=== PATIENT | male | born 1935 | race Caucasian/White ===

== ENCOUNTER 2016-12-21 23:25 | Observation (INO) | payer MEDICARE, BC ==
[2016-12-21] MEDS ORDERED: Sodium Chloride 0.9% 10 ML Syringe FLUSH PRN (23:43)
--- NOTE | 2016-12-21 23:52 | EDM.PDOC ---
ED HISTORY OF PRESENT ILLNESS - General Chief Complaint: Chest Pain Stated Complaint: CHEST PAIN Time Seen by Provider: 12/21/16 23:26 Source: Reports: Patient History Limitations: Reports: Altered mental status, Other (age) - History of Present Illness INITIAL COMMENTS - FREE TEXT/NARRATIVE: 81 year y.o.w.m with H/o afib, HTN, CVA, CAD, came to the ed due to an episode of C? 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 pt is in his usual state of health. Symptom Onset Date: 12/21/16 Symptom Onset Time: 16:00 Timing/Duration: Reports: Hour(s): Severity: mild Location, General: Reports: chest Improves with: Reports: Medication Worsens with: Reports: None Treatment(s) PAPER GUILLOTINE OPERATOR: Reports: Aspirin - Related Data Allergies/ADRs: Allergies Allergy/AdvReac Type Severity Reaction Status Date / Time Penicillins Allergy Rash Verified 12/21/16 23:55 Home Meds: Home Meds Ascorbic Acid [C-1000] 1,000 mg PO DAILY 12/21/16 [History] Aspirin [Halfprin] 81 mg PO DAILY 12/21/16 [History] Hydrochlorothiazide 50 mg PO DAILY 12/21/16 [History] Lisinopril 40 mg PO DAILY 12/21/16 [History] [place]-3 Fatty Acids [Maxepa] 1,000 mg PO BID 12/21/16 [History] Potassium Chloride 20 meq PO DAILY 12/21/16 [History] Pravastatin Sodium 80 mg PO DAILY 12/21/16 [History] Warfarin [Coumadin] 1.25 mg PO MOWEFR 12/21/16 [History] Warfarin [Coumadin] 2.5 mg PO SUTUTHSA 12/21/16 [History] amLODIPine Besylate [Amlodipine Besylate] 5 mg PO DAILY 12/21/16 [History] cloNIDine HCl [Catapres] 0.2 mg PO BID 12/21/16 [History] ED ROS GENERAL - Review of Systems Review Of Systems: See Below Constitutional: Reports: no symptoms HEENT: Reports: No symptoms Respiratory: Reports: no symptoms Cardiovascular: Reports: No symptoms Endocrine: Reports: no symptoms GI/Abdominal: Reports: No symptoms : Reports: no symptoms Musculoskeletal: Reports: no symptoms Skin: Reports: no symptoms Neurological: Reports: other (h/o cva) Psychiatric: Reports: No symptoms Hematologic/Lymphatic: Reports: no symptoms Immunologic: Reports: no symptoms ED EXAM, GENERAL - Physical Exam Exam: See Below Exam Limited By: Altered mental status General Appearance: alert, WD/WN, mild distress, obese Ears: normal external exam, normal canal, hearing grossly normal, normal TMs Ear Exam: bilateral ear: auricle normal, canal normal, TM normal Nose: normal inspection, normal mucosa, no blood Throat/Mouth: Normal inspection, Normal lips, Normal teeth, Normal gums, Normal oropharynx, Normal voice, No airway compromise Head: atraumatic, normocephalic Neck: normal inspection, supple, non-tender, full range of motion Respiratory/Chest: no respiratory distress, lungs clear, normal breath sounds, no accessory muscle use, chest non-tender Cardiovascular: normal peripheral pulses, regular rate, rhythm, no edema, no gallop, no JVD, no murmur, no rub GI/Abdominal: normal bowel sounds, soft, non tender, no organomegaly, no distention, no abnormal bruit, no mass (Male) Exam: Deferred Rectal (Males) Exam: Deferred Back Exam: normal inspection, full range of motion, NT Extremities: normal inspection, normal range of motion, non-tender, no pedal edema, normal capillary refill, pedal edema (chronic r leg) Neurological: alert, oriented, CN II-XII intact, normal cognition, normal gait Psychiatric: normal affect, normal mood Skin Exam: Warm, Dry, Intact, Normal color, No rash Lymphatic: no adenopathy EKG INTERPRETATION EKG Date: 12/21/16 Time: 23:35 Rhythm: a-fib Rate (beats/min): 73 [place]: normal P-wave: absent QRS: normal ST-T: normal QT: normal Comparison: NA - no prior EKG Course - Vital Signs Text/Narrative:: 81 year y.o.w.m with H/o afib, HTN, CVA, CAD, came to the ed due to an episode of C? 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 pt is in his usual state of health. PE: A fib with NVR, D Dimer Nl Imaging: CXR NAD Labs: potassium 3.1 INR 2.54 Tx: potassium Plan: Admit to [facility]ones for OBS Last Recorded V/S: Last Vital Signs Temp 36.7 C 12/21/16 23:30 Pulse 75 12/21/16 23:30 Resp 13 12/21/16 23:30 BP 179/91 H 12/22/16 00:06 Pulse Ox 98 12/21/16 23:30 - Orders/Labs/Meds Orders: Active Orders 24 hr Category Date Time Status Patient Status [ADT] Routine ADT 12/22/16 00:43 Active Anticoag Warfarin Education *Q [RC] DAILY Care 12/22/16 00:42 Active Bedrest Bedside Commode [RC] ASDIRECTED Care 12/22/16 00:42 Active EKG Documentation Completion [RC] ASDIRECTED Care 12/21/16 23:44 Active Oxygen Therapy [RC] PRN Care 12/22/16 00:43 Active VTE/DVT Education [RC] Per Unit Routine Care 12/22/16 00:43 Active Vital Signs [RC] Q4H Care 12/22/16 00:43 Active 2 Gram Sodium Diet [DIET] Diet 12/22/16 Breakfast Ordered Chest 1V Frontal [CR] Stat Exams 12/21/16 23:43 Taken TROPONIN I [CHEM] Stat Lab 12/22/16 00:40 Ordered Sodium Chloride 0.9% [Saline Flush] Med 12/21/16 23:43 Active 10 ml FLUSH ASDIRECTED PRN Saline Lock Insert [OM.PC] Routine Oth 12/21/16 23:43 Ordered Resuscitation Status Routine Resus Stat 12/22/16 00:42 Ordered EKG 12 Lead [EK] Routine Ther 12/21/16 23:43 Ordered Medication Orders Sodium Chloride (Saline Flush) 10 ml FLUSH ASDIRECTED PRN PRN Reason: Keep Vein Open Last Admin: 12/22/16 00:02 Dose: 10 ml Labs: Laboratory Tests 12/22/16 12/22/16 12/22/16 Range/Units 00:01 00:01 00:01 WBC 9.4 (4.5-12.0) X10-3/uL RBC 4.71 (4.30-5.75) x10(6)uL Hgb 14.8 (11.5-15.5) g/dL Hct 44.2 (30.0-51.3) % MCV 93.7 (80-96) fL MCH 31.4 (27.7-33.6) pg MCHC 33.5 (32.2-35.4) g/dL RDW 12.9 (11.5-15.5) % Plt Count 138 (125-369) X10(3)uL MPV 8.5 (7.4-10.4) fL Neut % (Auto) 72.4 (46-82) % Lymph % (Auto) 19.1 (13-37) % Garza % (Auto) 6.8 (4-12) % Eos % (Auto) 2 (1.0-5.0) % Baso % (Auto) 0 (0-2) % Neut # 6.9 (1.6-8.3) # Lymph # 1.8 (0.6-5.0) # Garza # 0.6 (0.0-1.3) # Eos # 0.1 (0.0-0.8) # Baso # 0.0 (0.0-0.2) # PT 25.3 H (8.7-11.1) INR 2.45 H (0.89-1.13) D-Dimer, Quantitative (100-400) ng/mL Sodium 140 (135-145) mmol/L Potassium 3.1 L (3.5-5.3) mmol/L Chloride 103 (100-110) mmol/L Carbon Dioxide 27 (23-29) mmol/L BUN 27 H (8-23) mg/dL Creatinine 1.0 (0.6-1.3) mg/dL Est Cr Clr Drug Dosing 53.25 mL/min Estimated GFR (MDRD) > 60 (>60) BUN/Creatinine Ratio 27.0 H (9-20) Glucose 112 (80-116) mg/dL Calcium 9.3 (8.6-10.2) mg/dL B-Natriuretic Peptide (0-100) pg/mL 12/22/16 12/22/16 Range/Units 00:01 00:01 WBC (4.5-12.0) X10-3/uL RBC (4.30-5.75) x10(6)uL Hgb (11.5-15.5) g/dL Hct (30.0-51.3) % MCV (80-96) fL MCH (27.7-33.6) pg MCHC (32.2-35.4) g/dL RDW (11.5-15.5) % Plt Count (125-369) X10(3)uL MPV (7.4-10.4) fL Neut % (Auto) (46-82) % Lymph % (Auto) (13-37) % Garza % (Auto) (4-12) % Eos % (Auto) (1.0-5.0) % Baso % (Auto) (0-2) % Neut # (1.6-8.3) # Lymph # (0.6-5.0) # Garza # (0.0-1.3) # Eos # (0.0-0.8) # Baso # (0.0-0.2) # PT (8.7-11.1) INR (0.89-1.13) D-Dimer, Quantitative 140 (100-400) ng/mL Sodium (135-145) mmol/L Potassium (3.5-5.3) mmol/L Chloride (100-110) mmol/L Carbon Dioxide (23-29) mmol/L BUN (8-23) mg/dL Creatinine (0.6-1.3) mg/dL Est Cr Clr Drug Dosing mL/min Estimated GFR (MDRD) (>60) BUN/Creatinine Ratio (9-20) Glucose (80-116) mg/dL Calcium (8.6-10.2) mg/dL B-Natriuretic Peptide 160 H (0-100) pg/mL Meds: Medications Generic Name Dose Route Start Last Admin Trade Name Freq PRN Reason Stop Dose Admin Sodium Chloride 10 ml 12/21/16 23:43 12/22/16 00:02 Saline Flush FLUSH 10 ml ASDIRECTED PRN Administration Keep Vein Open Discontinued Medications Generic Name Dose Route Start Last Admin Trade Name Freq PRN Reason Stop Dose Admin Clonidine HCl 0.1 mg 12/22/16 21:00 Catapres PO 12/22/16 00:02 BEDTIME DURAN Clonidine HCl 0.1 mg 12/22/16 00:03 12/22/16 00:06 Catapres PO 12/22/16 00:04 0.1 mg ONETIME STA Administration Potassium Chloride 40 meq 12/22/16 01:09 Klor-Con M20 PO 12/22/16 01:10 ONETIME ONE Departure - Departure Time of Disposition: 01:12 Disposition: Refer to Observation Condition: fair Clinical Impression: Chest pain Qualifiers: Chest pain type: unspecified Qualified Code(s): R07.9 - Chest pain, unspecified - My Orders Last 24 Hours: My Active Orders 12/21/16 23:43 Chest 1V Frontal [CR] Stat Sodium Chloride 0.9% [Saline Flush] 10 ml FLUSH ASDIRECTED PRN Saline Lock Insert [OM.PC] Routine EKG 12 Lead [EK] Routine 12/21/16 23:44 EKG Documentation Completion [RC] ASDIRECTED 12/22/16 00:40 TROPONIN I [CHEM] Stat 12/22/16 00:42 Anticoag Warfarin Education *Q [RC] DAILY Bedrest Bedside Commode [RC] ASDIRECTED Resuscitation Status Routine 12/22/16 00:43 Patient Status [ADT] Routine Oxygen Therapy [RC] PRN VTE/DVT Education [RC] Per Unit Routine Vital Signs [RC] Q4H 12/22/16 Breakfast 2 Gram Sodium Diet [DIET] - Assessment/Plan Last 24 Hours: My Active Orders 12/21/16 23:43 Chest 1V Frontal [CR] Stat Sodium Chloride 0.9% [Saline Flush] 10 ml FLUSH ASDIRECTED PRN Saline Lock Insert [OM.PC] Routine EKG 12 Lead [EK] Routine 12/21/16 23:44 EKG Documentation Completion [RC] ASDIRECTED 12/22/16 00:40 TROPONIN I [CHEM] Stat 12/22/16 00:42 Anticoag Warfarin Education *Q [RC] DAILY Bedrest Bedside Commode [RC] ASDIRECTED Resuscitation Status Routine 12/22/16 00:43 Patient Status [ADT] Routine Oxygen Therapy [RC] PRN VTE/DVT Education [RC] Per Unit Routine Vital Signs [RC] Q4H 12/22/16 Breakfast 2 Gram Sodium Diet [DIET]
[2016-12-22] MEDS ORDERED: cloNIDine 0.1 MG Tab PO STA (00:03)
[2016-12-22] MEDS ORDERED: Potassium Chloride 20 MEQ Tab.ER PO ONE (01:09)
[2016-12-22] MEDS ORDERED: Warfarin 2.5 MG Tab PO SCH (08:30)
[2016-12-22] MEDS ORDERED: Potassium Chloride 20 MEQ Tab.ER*PTOM PO SCH (09:00)
[2016-12-22] MEDS ORDERED: OMEGA PO SCH (09:00)
[2016-12-22] MEDS ORDERED: FATTY ACIDS PO SCH (09:00)
[2016-12-22] MEDS ORDERED: Non-Formulary Medication 1 Each (Clonidine Hcl [Catapres] 0.2 MG) PO SCH (09:00)
[2016-12-22] MEDS ORDERED: LISINOPRIL 40 MG PO SCH (09:00)
[2016-12-22] MEDS ORDERED: amLODIPine 10 MG Tab PO SCH (09:00)
[2016-12-22] MEDS ORDERED: Non-Formulary Medication 1 Each (Hydrochlorothiazide [Hydrochlorothiazide] 50 MG) PO SCH (09:00)
[2016-12-22] MEDS ORDERED: Aspirin 81 MG Tab.EC PO SCH (09:00)
[2016-12-22] MEDS ORDERED: ASCORBIC ACID 1000 MG PO SCH (09:00)
--- NOTE | 2016-12-22 09:22 | PCM.HP ---
H&P History of Present Illness - General Date of Service: 12/22/16 Admit Problem/Dx: Admission Diagnosis/Problem Admission Diagnosis/Problem Chest pain Source of Information: Patient History Limitations: Reports: Other (Memory impairment) - History of Present Illness Initial Comments - Free Text/Narative: This is an 85-year-old male patient lives with his in their home in [place]. He states started having chest pain yesterday so he went to the emergency room. By the time he got to the emergency room his pain stop. His EKG showed atrial fibrillation and he had a normal troponin. For observation with telemetry. He denies shortness of breath, diaphoresis, nausea, arm pain, jaw pain. He states he had an HI 6 years ago. He denies history of diabetes, smoking. He has a history of hypertension and hyperlipidemia. - Related Data Allergies/Adverse Reactions: Allergies Allergy/AdvReac Type Severity Reaction Status Date / Time Penicillins Allergy Rash Verified 12/21/16 23:55 Home Medications: Home Meds Ascorbic Acid [C-1000] 1,000 mg PO DAILY 12/21/16 [History] Aspirin [Halfprin] 81 mg PO DAILY 12/21/16 [History] Hydrochlorothiazide 50 mg PO DAILY 12/21/16 [History] Lisinopril 40 mg PO DAILY 12/21/16 [History] [place]-3 Fatty Acids [Maxepa] 1,000 mg PO BID 12/21/16 [History] Potassium Chloride 20 meq PO DAILY 12/21/16 [History] Pravastatin Sodium 80 mg PO BEDTIME 12/21/16 [History] Warfarin [Coumadin] 1.25 mg PO MOWEFR 12/21/16 [History] Warfarin [Coumadin] 2.5 mg PO SUTUTHSA 12/21/16 [History] amLODIPine Besylate [Amlodipine Besylate] 5 mg PO DAILY 12/21/16 [History] cloNIDine HCl [Catapres] 0.2 mg PO BID 12/21/16 [History] Past Medical History HEENT History: Reports: Cataract, Macular degeneration Cardiovascular History: Reports: Afib, Hypertension, HI, Stents Gastrointestinal History: Reports: GERD Genitourinary History: Reports: Other (see below) Other Genitourinary History: slow to start stream Musculoskeletal History: Reports: Other (see below) Other Musculoskeletal History: knee injury Neurological History: Reports: CVA - Infectious Disease History Infectious Disease History: Reports: Chicken pox, Measles, Mumps - Past Surgical History HEENT Surgical History: Reports: Cataract surgery Social & Family History - Tobacco Use Smoking Status *Q: Former Smoker Used Tobacco, but Quit: Yes Month Tobacco Last Used: 1954 - Caffeine Use Caffeine Use: Reports: Coffee - Recreational Drug Use Recreational Drug Use: No H&P Review of Systems - Review of Systems: Review Of Systems: See Below General: Reports: no symptoms HEENT: Reports: no symptoms Pulmonary: Reports: no symptoms Cardiovascular: Reports: chest pain. Denies: edema Gastrointestinal: Reports: No symptoms Genitourinary: Reports: no symptoms Musculoskeletal: Reports: no symptoms Skin: Reports: no symptoms Psychiatric: Reports: no symptoms Neurological: Reports: no symptoms Hematologic/Lymphatic: Reports: no symptoms Immunologic: Reports: no symptoms Exam - Exam Exam: See Below - Vital Signs Vital Signs: Last Vital Signs Temp 98 F 12/22/16 05:00 Pulse 86 12/22/16 01:00 Resp 19 12/22/16 05:00 BP 194/96 H 12/22/16 05:00 Pulse Ox 98 12/22/16 05:00 Weight: 207 lb - Exam General: alert, oriented, cooperative HEENT: PERRLA, Conjunctiva clear, EACs clear, EOMI, Hearing intact, Mucosa moist & pink, Posterior pharynx clear, TMs clear Neck: supple, trachea midline. No: carotid bruit Lungs: Clear to auscultation, Normal respiratory effort Cardiovascular: regular rhythm, normal S1, normal S2, irregular rhythm, systolic murmur. No: diastolic murmur Abdomen: normal bowel sounds, soft. No: organomegaly, guarding, rigidity, rebound, tenderness Back Exam: full range of motion, CVA tenderness (L) Extremities: normal inspection. No: edema Skin: warm Neurological: normal speech, normal tone Neuro Extensive - Mental Status: alert, oriented x3, normal mood/affect, normal cognition Psychiatric: alert, normal affect, normal mood - Patient Data Result Diagrams: 12/22/16 00:01 12/22/16 00:01 *Q Meaningful Use (ADM) - VTE *Q VTE Criteria *Q: - Stroke *Q Stroke Criteria *Q: - AMI *Q AMI Criteria *Q: - Problem List (1) Hypertension SNOMED Code(s): 11797712 ICD Code: I10 - ESSENTIAL (PRIMARY) HYPERTENSION Status: Acute Current Visit: Yes (2) Chest pain SNOMED Code(s): 44028451 ICD Code: R07.9 - CHEST PAIN, UNSPECIFIED Status: Acute Current Visit: Yes Qualifiers: Chest pain type: unspecified Qualified Code(s): R07.9 - Chest pain, unspecified Problem List Initiated/Reviewed/Updated: Yes Orders Last 24hrs: Active Orders 24 hr Category Date Time Status Telemetry Monitoring [Cardiac Monitoring] [RC] 00 [facility] 12/22/16 01:02 Active Ascorbic Acid [C-1000] Med 12/22/16 09:00 Ordered 1,000 mg PO DAILY Aspirin [Halfprin] Med 12/22/16 09:00 Ordered 81 mg PO DAILY Hydrochlorothiazide [Hydrochlorothiazide] Med 12/22/16 09:00 Ordered 50 mg PO DAILY Lisinopril [Prinivil] Med 12/22/16 09:00 Ordered 40 mg PO DAILY [place]-3 Fatty Acids [Maxepa] Med 12/22/16 09:00 Ordered 1,000 mg PO BID Potassium Chloride [Potassium Chloride] Med 12/22/16 09:00 Ordered 20 meq PO DAILY Pravastatin Sodium [Pravastatin Sodium] Med 12/22/16 21:00 Ordered 80 mg PO BEDTIME Warfarin [Coumadin] Med 12/23/16 08:18 Ordered 1.25 mg PO MOWEFR Warfarin [Coumadin] Med 12/22/16 08:30 Ordered 2.5 mg PO SUTUTHSA amLODIPine [Norvasc] Med 12/22/16 09:00 Ordered 5 mg PO DAILY cloNIDine HCl [Catapres] Med 12/22/16 09:00 Ordered 0.2 mg PO BID Medication Orders Amlodipine Besylate (Norvasc) 5 mg PO DAILY DUARN Aspirin (Halfprin) 81 mg PO DAILY DURAN Lisinopril (Prinivil) 40 mg PO DAILY DURAN Non-Formulary Medication (Ascorbic Acid [C-1000]) 1,000 mg PO DAILY DURAN Non-Formulary Medication (Hydrochlorothiazide [Hydrochlorothiazide]) 50 mg PO DAILY DURAN Non-Formulary Medication ([place]-3 Fatty Acids [Maxepa]) 1,000 mg PO BID DURAN Non-Formulary Medication (Pravastatin Sodium [Pravastatin Sodium]) 80 mg PO BEDTIME DURAN Non-Formulary Medication (Potassium Chloride [Potassium Chloride]) 20 meq PO DAILY COUNTS INCLUDE 234 BEDS AT THE [facility] Non-Formulary Medication (Clonidine Hcl [Catapres]) 0.2 mg PO BID COUNTS INCLUDE 234 BEDS AT THE [facility] Sodium Chloride (Saline Flush) 10 ml FLUSH ASDIRECTED PRN PRN Reason: Keep Vein Open Last Admin: 12/22/16 00:02 Dose: 10 ml Warfarin Sodium (Coumadin) 1.25 mg PO MOWEFR COUNTS INCLUDE 234 BEDS AT THE [facility] Warfarin Sodium (Coumadin) 2.5 mg PO SUTUTHSA COUNTS INCLUDE 234 BEDS AT THE [facility] Assessment/Plan Comment:: 1. Admit for observation and telemetry. 2. Repeat troponin and EKG. 3. Patient is observation and his hypertension is high. I will have his bring his medicines in so he did try to get his blood pressure under better control. 4. Regular diet. 5. Up ad lashonda. 6. I will take a look at his chest x-ray.
[2016-12-22] MEDS ORDERED: AMLODIPINE 2.5 MG PO SCH (10:00)
--- NOTE | 2016-12-22 12:49 | PCM.SN ---
- Free Text/Narrative Note: Patient asymptomatic. Troponins negative. EKG shows atrial fib with left bundle branch block.
--- NOTE | 2016-12-22 12:53 | PCM.DCSUM1 ---
Discharge Summary - Hospital Course Free Text/Narrative:: Hospital course-patient was asymptomatic his whole stay at the hospital. His chest pain went away at the year before they did anything. His blood pressure was also high so he stayed here in the morning. Potassium is low based on potassium pills. His brought his pills and he went on all his blood pressure pills. Then his blood pressure went to 160/78. Troponins were negative. EKG shows atrial fib with left bundle branch block with controlled rate. We'll discharged to home on nitroglycerin sublingual when necessary. I will have her followup with Dr. Girard in a week and he can see with a cardiac stress test or other that a will work for this patient. Brief History: This is an 85-year-old male patient lives with his in their home in [place]. He states started having chest pain yesterday so he went to the emergency room. By the time he got to the emergency room his pain stop. His EKG showed atrial fibrillation and he had a normal troponin. For observation with telemetry. He denies shortness of breath, diaphoresis, nausea , arm pain, jaw pain. He states he had an IL 6 years ago. He denies history of diabetes, smoking. He has a history of hypertension and hyperlipidemia. - Discharge Data Discharge Date: 12/22/16 Discharge Disposition: Home, Self-Care 01 Condition: Good - Discharge Diagnosis/Problem(s) (1) Hypertension SNOMED Code(s): 73438989 ICD Code: I10 - ESSENTIAL (PRIMARY) HYPERTENSION Status: Acute Current Visit: Yes (2) Chest pain SNOMED Code(s): 68943251 ICD Code: R07.9 - CHEST PAIN, UNSPECIFIED Status: Acute Current Visit: Yes Qualifiers: Chest pain type: unspecified Qualified Code(s): R07.9 - Chest pain, unspecified - Patient Instructions Diet: Heart Healthy Diet Activity: As Tolerated Driving: May Drive Today Showering/Bathing: May Shower Notify Provider of: Increased Pain Other/Special Instructions: 1. Recheck with Dr. Girard in one week. Dr. Girard can determine the best continuation of his cardiac workup to rule out any coronary artery disease. Patient released in a stable - Discharge Plan Prescriptions/Med Rec: Nitroglycerin [Nitrostat] 0.4 mg SL 5XDAY PRN #25 tab.sl PRN Reason: Chest Pain Home Medications: Home Meds Ascorbic Acid [C-1000] 1,000 mg PO DAILY 12/21/16 [History] Aspirin [Halfprin] 81 mg PO DAILY 12/21/16 [History] Hydrochlorothiazide 50 mg PO DAILY 12/21/16 [History] Lisinopril 40 mg PO DAILY 12/21/16 [History] [place]-3 Fatty Acids [Maxepa] 1,000 mg PO BID 12/21/16 [History] Potassium Chloride 20 meq PO DAILY 12/21/16 [History] Pravastatin Sodium 80 mg PO BEDTIME 12/21/16 [History] Warfarin [Coumadin] 1.25 mg PO MOWEFR 12/21/16 [History] Warfarin [Coumadin] 2.5 mg PO SUTUTHSA 12/21/16 [History] cloNIDine HCl [Catapres] 0.2 mg PO BID 12/21/16 [History] Nitroglycerin [Nitrostat] 0.4 mg SL 5XDAY PRN #25 tab.sl 12/22/16 [Rx] amLODIPine [Norvasc] 2.5 mg PO DAILY 12/22/16 [History] Forms: ED Department Discharge Referrals: William Girard MD [Primary Care Provider] - - Discharge Summary/Plan Comment DC Time >30 min.: No - Patient Data Vitals - Most Recent: Last Vital Signs Temp 97.4 F 12/22/16 09:00 Pulse 51 L 12/22/16 09:00 Resp 18 12/22/16 09:00 BP 178/96 H 12/22/16 11:01 Pulse Ox 99 12/22/16 09:00 Weight - Most Recent: 207 lb Lab Results - Last 24 hrs: Laboratory Results - last 24 hr 12/22/16 Range/Units 09:45 Troponin I 0.02 (0.02-0.06) NG/ML Med Orders - Current: Current Medications Amlodipine Besylate (Norvasc) 2.5 mg PO DAILY [facility] Last Admin: 12/22/16 11:01 Dose: 2.5 mg Aspirin (Halfprin) 81 mg PO DAILY [facility] Last Admin: 12/22/16 11:02 Dose: 81 mg Lisinopril (Prinivil) 40 mg PO DAILY [facility] Last Admin: 12/22/16 09:57 Dose: 40 mg Non-Formulary Medication (Ascorbic Acid [C-1000]) 1,000 mg PO DAILY [facility] Non-Formulary Medication (Hydrochlorothiazide [Hydrochlorothiazide]) 50 mg PO DAILY [facility] Last Admin: 12/22/16 09:57 Dose: 50 mg Non-Formulary Medication ([place]-3 Fatty Acids [Maxepa]) 1,000 mg PO BID [facility] Non-Formulary Medication (Pravastatin Sodium [Pravastatin Sodium]) 80 mg PO BEDTIME [facility] Non-Formulary Medication (Clonidine Hcl [Catapres]) 0.2 mg PO BID [facility] Last Admin: 12/22/16 09:56 Dose: 0.2 mg Potassium Chloride (Klor-Con M20) 20 meq PO DAILY [facility] Last Admin: 12/22/16 09:57 Dose: 20 meq Sodium Chloride (Saline Flush) 10 ml FLUSH ASDIRECTED PRN PRN Reason: Keep Vein Open Last Admin: 12/22/16 00:02 Dose: 10 ml Warfarin Sodium (Coumadin) 1.25 mg PO MOWEFR [facility] Warfarin Sodium (Coumadin) 2.5 mg PO SUTUTHSA [facility] Discontinued Medications Clonidine HCl (Catapres) 0.1 mg PO BEDTIME DURAN Stop: 12/22/16 00:02 Clonidine HCl (Catapres) 0.1 mg PO ONETIME STA Stop: 12/22/16 00:04 Last Admin: 12/22/16 00:06 Dose: 0.1 mg Potassium Chloride (Klor-Con M20) 40 meq PO ONETIME ONE Stop: 12/22/16 01:10 Last Admin: 12/22/16 02:15 Dose: 40 meq *Q Meaningful Use (DIS) - VTE *Q VTE Criteria *Q: - Stroke *Q Stroke Criteria *Q: - AMI *Q AMI Criteria *Q:
[2016-12-22 13:14] VITALS: BP 161/74
[2016-12-22] MEDS ORDERED: Non-Formulary Medication 1 Each (Pravastatin Sodium [Pravastatin Sodium] 80 MG) PO SCH (21:00)
[2016-12-22] MEDS ORDERED: cloNIDine 0.1 MG Tab PO SCH (21:00)
[2016-12-23] MEDS ORDERED: Warfarin 2.5 MG Tab PO SCH (08:18)
--- NOTE | 2016-12-23 08:58 | CR ---
INDICATION: Chest pain. CHEST: AP portable upright view of the chest 12/22/2016, compared with 2010, revealed the aorta to be tortuous and calcified. The heart is enlarged. The lungs appear negative for an active infiltrate or effusion, as visualized on this portable study. There is some rotation to the right. Overlying EKG leads are noted. Degenerative changes are severe at the right glenohumeral joint. IMPRESSION: 1. No definite acute process. 2. ASHD. MTDD
== END 2016-12-22 14:30 | disposition home or self-care (01) ==
LOC: FB.ED 23:25 → FB.MS 12-22 00:43
PROVIDERS: ADMIT Emergency Medicine; ATTEND Family Medicine
DX: R07.9 Chest pain, unspecified (principal); I48.91 Unspecified atrial fibrillation; I10 Essential (primary) hypertension; Z79.82 Long term (current) use of aspirin; Z79.01 Long term (current) use of anticoagulants; Z79.899 Other long term (current) drug therapy; Z88.0 Allergy status to penicillin; I25.2 Old myocardial infarction; Z87.891 Personal history of nicotine dependence
CPT/HCPCS: 36415; 71010; 80048; 83880; 84484; 85025; 85379; 85610; 93005; 99285; A9270; G0378; J7050; 99235

== ENCOUNTER 2018-07-09 06:50 | Day surgery (SDC) | payer MEDICARE, BC ==
[~2018-07-09 06:50] MED LIST: Lactated Ringers 1,000 ML IV SCH; Sodium Chloride 0.9% 10 ML Syringe FLUSH PRN
[2018-07-09] MEDS ORDERED: Propofol 200 MG/20 ML SDV IV ONE (08:00)
[2018-07-09] MEDS ORDERED: Glycopyrrolate 0.2 MG/ML 5 ML MDV IV ONE (08:00)
--- NOTE | 2018-07-09 08:11 | PCM.HPR ---
H & P Addendum review - H & P Addendum Review Date of Original H & P: 07/05/18 Date Reviewed: 07/09/18 Time Reviewed: 08:00 Patient was Examined: No Changes
--- NOTE | 2018-07-09 08:28 | PCM.OPNOTE ---
- General Post-Op/Procedure Note Date of Surgery/Procedure: 07/09/18 Operative Procedure(s): Colonoscopy Findings: Sig Tics Pre Op Diagnosis: Hematochezia Post-Op Diagnosis: Same Anesthesia Technique: MAC Primary Surgeon: Joce Reich Anesthesia Provider: Wendie Christianson Complications: None Condition: Good
--- NOTE | 2018-07-09 10:13 | OR ---
DATE OF OPERATION: 07/09/2018 SURGEON: Joce Reich MD PREOPERATIVE DIAGNOSIS: Hematochezia. POSTOPERATIVE DIAGNOSIS: Sigmoid diverticulosis. PROCEDURE PERFORMED: Colonoscopy. ANESTHESIA: IV sedation. DESCRIPTION OF PROCEDURE: The patient was brought to the procedure room, where he was placed on his left side and IV sedation administered. Digital rectal exam was performed, which was normal. The colonoscope was inserted and advanced to the level of the cecum without difficulty. The prep was good and surfaces were well-visualized. Upon withdrawing the scope, the ascending, transverse, and descending colon were normal in appearance. Sigmoid colon had multiple diverticula present. Rectum was normal and retroflexion was normal. There was no source of bleeding identified. There was no old blood present in the lumen. The patient tolerated the procedure well and returned to recovery in stable condition. I will have him restart his Coumadin. No further workup is necessary at this point, since his hemoglobin was stable. /[id number] 1003 RIKY/SHANTELLE
[2018-07-09 10:36] VITALS: BP 123/76
== END 2018-07-09 09:55 | disposition home or self-care (01) ==
LOC: FB.SDS 06:50
PROVIDERS: ATTEND Surgery
DX: K92.1 Melena (principal); K57.30 Diverticulosis of large intestine without perforation or abscess without bleeding; I10 Essential (primary) hypertension; I48.91 Unspecified atrial fibrillation; E78.00 Pure hypercholesterolemia, unspecified; Z86.73 Personal history of transient ischemic attack (TIA), and cerebral infarction without residual deficits; Z79.01 Long term (current) use of anticoagulants
CPT/HCPCS: 00811-QZ; J2704; J3490; J7120

== ENCOUNTER → 2019-07-08 | Day surgery (SDC) | payer MEDICARE, BC ==
[~2019-07-08] MED LIST changes: +Lidocaine 2% 5 ML SDV INJECT ONE; +Propofol 200 MG/20 ML SDV IV ONE; -Sodium Chloride 0.9% 10 ML Syringe FLUSH PRN
--- NOTE | 2019-07-08 18:01 | EDM.PDOC ---
ED HPI GENERAL MEDICAL PROBLEM - General Stated Complaint: OBJECT STUCK IN THROAT Time Seen by Provider: 07/08/19 17:20 Source of Information: Reports: Patient History Limitations: Reports: No Limitations - History of Present Illness INITIAL COMMENTS - FREE TEXT/NARRATIVE: Patient presents today with concern for something stuck in his throat which started at noon today. He states he was eating some beef stew made by his with some chunks in it. He was coughing for a long time after lunch, and now just feels like he has a lot of phlegm in his throat. He states that his happened once previously. He has not had anything to drink since then, although his then inputs that maybe he had some milk. He denies any chest pain or shortness of breath. He denies any nausea or vomiting, just is spitting up. Past medical history significant for a CVA 10 years ago, and a cardiac stent placed in 2010. Has history of atrial fibrillation and is on Coumadin [facility] by [facility]. No history of diabetes. No history of any lung problems, does not smoke, very rare beer and no drug use. - Related Data Allergies Allergy/AdvReac Type Severity Reaction Status Date / Time Penicillins Allergy Rash Verified 07/08/19 18:28 Home Meds: Home Meds Ascorbic Acid [C-1000] 1,000 mg PO DAILY 12/21/16 [History] Lisinopril 40 mg PO DAILY 12/21/16 [History] [place]-3 Fatty Acids [Maxepa] 1,000 mg PO BID 12/21/16 [History] Potassium Chloride 20 meq PO DAILY 12/21/16 [History] Pravastatin Sodium 80 mg PO BEDTIME 12/21/16 [History] Warfarin [Coumadin] 1.25 mg PO MOFR 12/21/16 [History] Warfarin [Coumadin] 2.5 mg PO SUTUWETHFR 12/21/16 [History] cloNIDine HCl [Catapres] 0.2 mg PO BID 12/21/16 [History] hydroCHLOROthiazide [Hydrochlorothiazide] 50 mg PO DAILY 12/21/16 [History] Nitroglycerin [Nitrostat] 0.4 mg SL 5XDAY PRN #25 tab.sl 12/22/16 [Rx] amLODIPine [Norvasc] 2.5 mg PO DAILY 12/22/16 [History] Isosorbide Mononitrate [Imdur] 30 mg PO DAILY 07/06/18 [History] Multivitamin with Minerals [Multiple Vitamin] 1 ea PO DAILY 07/06/18 [History] Pantoprazole Sodium [Protonix] 40 mg PO DAILY #30 tablet. 07/08/19 [Rx] Past Medical History HEENT History: Reports: Cataract, Impaired Vision, Macular Degeneration Cardiovascular History: Reports: Afib, High Cholesterol, Hypertension, [place], Stents Respiratory History: Reports: None Gastrointestinal History: Reports: Colon Polyp, GERD Genitourinary History: Reports: Other (See Below) Other Genitourinary History: slow to start stream Musculoskeletal History: Reports: Other (See Below) Other Musculoskeletal History: knee injury Neurological History: Reports: CVA Psychiatric History: Reports: None Endocrine/Metabolic History: Reports: Obesity/BMI 30+ Hematologic History: Reports: None Immunologic History: Reports: None Oncologic (Cancer) History: Reports: None Dermatologic History: Reports: None - Infectious Disease History Infectious Disease History: Reports: Chicken Pox, Measles, Mumps - Past Surgical History Head Surgeries/Procedures: Reports: None HEENT Surgical History: Reports: Cataract Surgery, Tonsillectomy Cardiovascular Surgical History: Reports: Coronary Artery Stent Respiratory Surgical History: Reports: None GI Surgical History: Reports: Appendectomy, Colonoscopy, Hernia Repair/Other Neurological Surgical History: Reports: None Musculoskeletal Surgical History: Reports: None Oncologic Surgical History: Reports: None Dermatological Surgical History: Reports: None Social & Family History - Family History Family Medical History: Noncontributory - Tobacco Use Smoking Status *Q: Former Smoker Used Tobacco, but Quit: Yes Month/Year Tobacco Last Used: very remote, like in teens - Caffeine Use Caffeine Use: Reports: Coffee ED ROS GENERAL - Review of Systems Review Of Systems: ROS reveals no pertinent complaints other than HPI. ED EXAM, GENERAL - Physical Exam Exam: See Below Free Text/Narrative:: Gen.: Alert, pleasant not acutely distressed. Head is atraumatic, pupils equal and reactive, throat is without erythema but excessive salivation is noted. He is also noted to be spitting up his saliva while sitting in the chair. Neck is supple, lungs are clear throughout with no wheezes or crackles, heart is regular and I do not hear a murmur. He has normal gait but walks with a cane and appears to be slightly wobbly on his legs. Course - Vital Signs Text/Narrative:: Patient presented with concern for food bolus stuck in his throat, his accompanies him. There is some confusion in the history about if he has had anything to drink since lunch or not, but he states no. They were considering just going home with follow-up tomorrow and so was asked to have a drink of water here first, since I observed him spitting up his saliva. He had significant coughing immediately after taking just a couple of sips, and has continued to spit his saliva into an emesis bag. Discussed with them possibility of EGD, which they are reluctantly in agreement to. Dr. Grubbs contacted, who will come and see the patient. Last Recorded V/S: Last Vital Signs Temp 36.3 C 07/08/19 20:20 Pulse 64 07/08/19 20:50 Resp 22 H 07/08/19 20:50 BP 150/74 H 07/08/19 20:50 Pulse Ox 100 07/08/19 20:50 - Orders/Labs/Meds Orders: Medication Orders Lactated Ringer's (Ringers, Lactated) 1,000 mls @ 125 mls/hr IV ASDIRECTED DURAN Last Admin: 07/08/19 18:30 Dose: 125 mls/hr Meds: Medications Generic Name Dose Route Start Last Admin Trade Name Freq PRN Reason Stop Dose Admin Lactated Ringer's 1,000 mls @ 125 mls/hr 07/08/19 18:45 07/08/19 18:30 Ringers, Lactated IV 125 mls/hr ASDIRECTED DURAN Administration Discontinued Medications Generic Name Dose Route Start Last Admin Trade Name Freq PRN Reason Stop Dose Admin Lidocaine 5 ml 07/08/19 18:39 Xylocaine-Mpf 2% INJECT 07/08/19 18:40 .STK-MED ONE Propofol 120 mg 07/08/19 18:39 Diprivan 20 Ml IV 07/08/19 18:40 .STK-MED ONE - Re-Assessments/Exams Free Text/Narrative Re-Assessment/Exam: to OR for EGD with Dr Grubbs Departure - Departure Time of Disposition: 18:15 Disposition: Refer to Observation Condition: Undetermined Clinical Impression: Esophageal obstruction due to food impaction - Discharge Information *PRESCRIPTION DRUG MONITORING PROGRAM REVIEWED*: Not Applicable *COPY OF PRESCRIPTION DRUG MONITORING REPORT IN PATIENT [facility]: Not Applicable
--- NOTE | 2019-07-08 18:37 | PCM.HP.2 ---
H&P History of Present Illness - General Date of Service: 07/08/19 - History of Present Illness Initial Comments - Free Text/Narative: 83 yo wm who was eating some beef stew for lunch. Apparently had some food get stuck. Has been unable tolerate his saliva or to drink. Appears to still have a food impaction. Poor historian. Last endoscopy was a year ago and was a colonoscopy. - Related Data Allergies/Adverse Reactions: Allergies Allergy/AdvReac Type Severity Reaction Status Date / Time Penicillins Allergy Rash Verified 07/08/19 18:28 Home Medications: Home Meds Ascorbic Acid [C-1000] 1,000 mg PO DAILY 12/21/16 [History] Aspirin [Halfprin] 81 mg PO DAILY 12/21/16 [History] Lisinopril 40 mg PO DAILY 12/21/16 [History] [place]-3 Fatty Acids [Maxepa] 1,000 mg PO BID 12/21/16 [History] Potassium Chloride 20 meq PO DAILY 12/21/16 [History] Pravastatin Sodium 80 mg PO BEDTIME 12/21/16 [History] Warfarin [Coumadin] 1.25 mg PO MOWEFR 12/21/16 [History] Warfarin [Coumadin] 2.5 mg PO SUTUTHSA 12/21/16 [History] cloNIDine HCl [Catapres] 0.2 mg PO BID 12/21/16 [History] hydroCHLOROthiazide [Hydrochlorothiazide] 50 mg PO DAILY 12/21/16 [History] Nitroglycerin [Nitrostat] 0.4 mg SL 5XDAY PRN #25 tab.sl 12/22/16 [Rx] amLODIPine [Norvasc] 2.5 mg PO DAILY 12/22/16 [History] Escitalopram [Lexapro] 10 mg PO BEDTIME 07/06/18 [History] Isosorbide Mononitrate [Imdur] 30 mg PO DAILY 07/06/18 [History] Multivitamin with Minerals [Multiple Vitamin] 1 ea PO DAILY 07/06/18 [History] Past Medical History HEENT History: Reports: Cataract, Impaired Vision, Macular Degeneration Cardiovascular History: Reports: Afib, High Cholesterol, Hypertension, [place], Stents Respiratory History: Reports: None Gastrointestinal History: Reports: Colon Polyp, GERD Genitourinary History: Reports: Other (See Below) Other Genitourinary History: slow to start stream Musculoskeletal History: Reports: Other (See Below) Other Musculoskeletal History: knee injury Neurological History: Reports: CVA Psychiatric History: Reports: None Endocrine/Metabolic History: Reports: Obesity/BMI 30+ Hematologic History: Reports: None Immunologic History: Reports: None Oncologic (Cancer) History: Reports: None Dermatologic History: Reports: None - Infectious Disease History Infectious Disease History: Reports: Chicken Pox, Measles, Mumps - Past Surgical History Head Surgeries/Procedures: Reports: None HEENT Surgical History: Reports: Cataract Surgery, Tonsillectomy Cardiovascular Surgical History: Reports: Coronary Artery Stent Respiratory Surgical History: Reports: None GI Surgical History: Reports: Appendectomy, Colonoscopy, Hernia Repair/Other Neurological Surgical History: Reports: None Musculoskeletal Surgical History: Reports: None Oncologic Surgical History: Reports: None Dermatological Surgical History: Reports: None Social & Family History - Family History Family Medical History: Noncontributory - Tobacco Use Smoking Status *Q: Former Smoker Used Tobacco, but Quit: Yes Month/Year Tobacco Last Used: very remote, like in teens - Caffeine Use Caffeine Use: Reports: Coffee H&P Review of Systems - Review of Systems: Review Of Systems: See Below General: Reports: No Symptoms Pulmonary: Reports: No Symptoms Cardiovascular: Reports: Palpitations Gastrointestinal: Reports: Difficulty Swallowing Exam - Exam Exam: See Below - Exam General: Alert, Cooperative Neck: Supple, Trachea Midline Lungs: Clear to Auscultation, Normal Respiratory Effort Cardiovascular: Irregular Rhythm GI/Abdominal Exam: Normal Bowel Sounds, Soft, Non-Tender *Q Meaningful Use (ADM) - VTE *Q VTE Pharmacological Contraindications *Q: High INR Value - Problem List (1) Food impaction of esophagus SNOMED Code(s): 955077870 ICD Code: T18.128A - FOOD IN ESOPHAGUS CAUSING OTHER INJURY, INITIAL ENCOUNTER Status: Acute Current Visit: Yes Problem List Initiated/Reviewed/Updated: Yes Orders Last 24hrs: Active Orders 24 hr Category Date Time Status EKG Documentation Completion [RC] ASDIRECTED Care 07/08/19 18:32 Ordered EKG 12 Lead [EK] Routine Ther 07/08/19 18:32 Ordered Assessment/Plan Comment:: EGD Procedure and risks were explained to the pt to include bleeding infection perforation. Expressed understanding and asksk us to proceed.
--- NOTE | 2019-07-08 19:48 | PCM.OPNOTE ---
- General Post-Op/Procedure Note Date of Surgery/Procedure: 07/08/19 Operative Procedure(s): egd. removal of food impaction Findings: food impaction cleared with farley net and forceps Pre Op Diagnosis: food impaction Post-Op Diagnosis: Same Anesthesia Technique: MAC Primary Surgeon: Angel Grubbs Anesthesia Provider: Luli Romano Pathology: none Complications: None Condition: Good Free Text/Narrative:: see dictation
[2019-07-09 01:15] VITALS: BP 150/74; PULSE 64
--- NOTE | 2019-07-09 01:33 | OR ---
DATE OF OPERATION: 07/08/2019 SURGEON: Angel Grubbs MD PROCEDURE PERFORMED: Esophagogastroduodenoscopy with removal of food impaction. PREOPERATIVE DIAGNOSIS: Food impaction. POSTOPERATIVE DIAGNOSIS: Food impaction. INDICATIONS FOR PROCEDURE: This is an 83-year-old white male who apparently was eating beef stew for lunch today, developed some impaction, had some difficulty controlling his saliva. On exam and by history, he appeared to have a food impaction, was offered and accepted an EGD. DESCRIPTION OF OPERATION: After an excellent IV sedation was administered, bite block was inserted, flexible endoscope was passed. At approximately 40 cm, there was particular matter. We were able to clear the obstruction with a combination of forceps and Sage Net. This allowed us to enter the stomach. No marked stricture was noted. No marked bleeding was noted at all at least by our exam. There was some coating of the esophagus by the food about the pathway, this was well chewed and digested and did not appear to be a cause for an issue with impaction. He was taken to recovery room and will be discharged later this evening. /[id number] /MODL
== END | disposition home or self-care (01) ==
LOC: FB.ED 16:18 → FB.SDS 18:38
PROVIDERS: ATTEND Surgery
DX: T18.128A Food in esophagus causing other injury, initial encounter (principal); E78.00 Pure hypercholesterolemia, unspecified; I10 Essential (primary) hypertension; K21.9 Gastro-esophageal reflux disease without esophagitis; E66.9 Obesity, unspecified; Z87.891 Personal history of nicotine dependence; Z88.0 Allergy status to penicillin; Z79.82 Long term (current) use of aspirin; Z79.899 Other long term (current) drug therapy; Z79.01 Long term (current) use of anticoagulants
CPT/HCPCS: 00731; 43247; 93005; 99283; J2001; J2704; J7120

== ENCOUNTER 2020-05-12 12:46 | Inpatient (IN) | payer MEDICARE, BC ==
[2020-05-12] MEDS ORDERED: Potassium Chloride 10% 20 MEQ/15 ML Soln 15 ML UD Cup PO ONE (14:53)
--- NOTE | 2020-05-12 16:09 | CT ---
INDICATION: Bilateral lower extremity weakness. CT HEAD WITHOUT CONTRAST: Spiral 3.75 mm axial sections were obtained through the brain without contrast with sagittal, coronal and axial reconstructions 05/12/20 and compared with 08/07/15. Total exam DLP was 1322.30 mGy-cm. A few ethmoidal air cells on the right posteriorly are opacified as previously likely representing retention cysts. Paranasal sinuses, as partly visualized, were fairly well aerated. The mastoid air cells were moderately well aerated with a few of the more inferior air cells not fully aerated as previously, of questionable significance. No definite cranial abnormality was identified. The orbits appear to be grossly intact. Extensive calcifications are noted in the vertebral, basilar and internal carotid arteries with calcifications extending into the middle cerebral arteries. An area of encephalomalacia is again noted in the left frontal region cortex and white matter, compatible with previous thrombotic CVA or other injury to the brain in that area. Mild to moderate white matter changes are noted, compatible with small vessel ischemic disease. No definite acute intracranial abnormality was identified - no bleeding site or hematoma was seen. No significant shift of midline structures was identified. The ventricles and sulci are somewhat prominent, compatible with patient's age and a mild to moderate degree of generalized atrophy. Minimal lacunar infarct again suggested in the right basal ganglia with a larger left basal ganglia lacunar infarct and a small lacunar infarct suggested in the caudate nucleus on the left, most likely probably present previously for both of these findings. IMPRESSION: 1. No definite acute intracranial abnormality - correlate clinically as additional acute disease superimposed on chronic changes are difficult to exclude. Additional examination such as MRI may be helpful in that regard. 2. Area of encephalomalacia in the left frontal lobe cortex and adjacent white matter, which may be on the basis of previous thrombotic CVA. 3. Generalized atrophy. 4. Extensive cerebrovascular disease - arterial calcifications noted with findings compatible with microvascular disease. Lacunar infarcts are noted in the left basal ganglia and left caudate nucleus, at least partly present previously. A very tiny lacunar infarct may also be present in the right basal ganglia, most likely present previously also. 5. Partial opacification of a few ethmoidal air cells of questionable significance - possible retention cyst. Report was called to Dr. Camarillo at 1403 hours. [facility]
[2020-05-12] MEDS ORDERED: Nitroglycerin 0.4 MG Tab.SL SL PRN (22:26)
--- NOTE | 2020-05-13 06:27 | EDM.PDOC ---
ED HPI GENERAL MEDICAL PROBLEM - General Chief Complaint: General Stated Complaint: LEG SWOLLEN Time Seen by Provider: 05/12/20 13:00 Source of Information: Reports: Patient, Family History Limitations: Reports: No Limitations - History of Present Illness INITIAL COMMENTS - FREE TEXT/NARRATIVE: Patient presented to the ED because of bilateral extremity weakness and RLE edema. He started to feel weak 1 week ago and last night he couldn't walk and his legs just gave out, although he didn't fall. He normally use a walker but still is couldn't ambulate well. There is no associated leg pain, no chest pain, dyspnea. No recent cough or cold symptoms nor fever or chills. No N/V/D. Head Pain Score (Numeric/FACES): 2 - Related Data Allergies Allergy/AdvReac Type Severity Reaction Status Date / Time Penicillins Allergy Rash Verified 07/08/19 18:28 Home Meds: Home Meds Lisinopril 40 mg PO DAILY 12/21/16 [History] Potassium Chloride 20 meq PO DAILY 12/21/16 [History] Pravastatin Sodium 80 mg PO BEDTIME 12/21/16 [History] Warfarin [Coumadin] 1.25 mg PO SUMOWEFRSA 12/21/16 [History] Warfarin [Coumadin] 2.5 mg PO TUTH 12/21/16 [History] cloNIDine HCL [Catapres] 0.2 mg PO BID 12/21/16 [History] hydroCHLOROthiazide [Hydrochlorothiazide] 50 mg PO DAILY 12/21/16 [History] amLODIPine [Norvasc] 2.5 mg PO DAILY 12/22/16 [History] Isosorbide Mononitrate [Imdur] 30 mg PO DAILY 07/06/18 [History] Multivitamin with Minerals [Multiple Vitamin] 1 ea PO DAILY 07/06/18 [History] Nitroglycerin [Nitrostat] 0.4 mg SL Q5M PRN 05/12/20 [History] Past Medical History HEENT History: Reports: Cataract, Impaired Vision, Macular Degeneration Cardiovascular History: Reports: Afib, High Cholesterol, Hypertension, [place], Stents Respiratory History: Reports: None Gastrointestinal History: Reports: Colon Polyp, GERD Genitourinary History: Reports: Other (See Below) Other Genitourinary History: slow to start stream Musculoskeletal History: Reports: Other (See Below) Other Musculoskeletal History: knee injury Neurological History: Reports: CVA Psychiatric History: Reports: None Endocrine/Metabolic History: Reports: Obesity/BMI 30+ Hematologic History: Reports: None Immunologic History: Reports: None Oncologic (Cancer) History: Reports: None Dermatologic History: Reports: None - Infectious Disease History Infectious Disease History: Reports: Chicken Pox, Measles, Mumps - Past Surgical History Head Surgeries/Procedures: Reports: None HEENT Surgical History: Reports: Cataract Surgery, Tonsillectomy Cardiovascular Surgical History: Reports: Coronary Artery Stent Respiratory Surgical History: Reports: None GI Surgical History: Reports: Appendectomy, Colonoscopy, Hernia Repair/Other Male Surgical History: Reports: None, Other (See Below) Other Male Surgeries/Procedures: inc urine at times Endocrine Surgical History: Reports: None Neurological Surgical History: Reports: None Musculoskeletal Surgical History: Reports: None Oncologic Surgical History: Reports: None Dermatological Surgical History: Reports: None Social & Family History - Family History Family Medical History: Noncontributory - Tobacco Use Smoking Status *Q: Never Smoker Second Hand Smoke Exposure: No - Caffeine Use Caffeine Use: Reports: Coffee - Recreational Drug Use Recreational Drug Use: No ED ROS GENERAL - Review of Systems Review Of Systems: See Below Constitutional: Reports: Weakness HEENT: Reports: No Symptoms Respiratory: Reports: No Symptoms Cardiovascular: Reports: No Symptoms Endocrine: Reports: No Symptoms GI/Abdominal: Reports: No Symptoms : Reports: No Symptoms Musculoskeletal: Reports: No Symptoms Skin: Reports: No Symptoms Neurological: Reports: No Symptoms Psychiatric: Reports: No Symptoms ED EXAM, GENERAL - Physical Exam Exam: See Below Exam Limited By: No Limitations General Appearance: Alert, No Apparent Distress Ears: Normal External Exam, Normal Canal Nose: Normal Inspection, Normal Mucosa, No Blood Throat/Mouth: Normal Inspection, Normal Lips, Normal Teeth Head: Atraumatic, Normocephalic Neck: Normal Inspection, Supple, Non-Tender Respiratory/Chest: No Respiratory Distress, Lungs Clear, Normal Breath Sounds Cardiovascular: Normal Peripheral Pulses, Regular Rate, Rhythm, No Edema, No Gallop, No JVD, No Murmur GI/Abdominal: Normal Bowel Sounds, Soft, Non-Tender, No Organomegaly, No Distention, No Abnormal Bruit Back Exam: Normal Inspection, Full Range of Motion Extremities: Other (RLE edema) Psychiatric: Normal Affect Course - Vital Signs Text/Narrative:: Labs/EKG/Head CT was discussed with patient and verbalized full understanding. KCL liquid 40 meq po x1 RLE doppler US tomorrow Echo Last Recorded V/S: Last Vital Signs Temp 36.8 C 05/13/20 04:30 Pulse 74 05/13/20 04:30 Resp 16 05/13/20 04:30 BP 159/75 H 05/13/20 04:30 Pulse Ox 97 05/13/20 04:30 - Orders/Labs/Meds Orders: Active Orders 24 hr Category Date Time Status EKG Documentation Completion [RC] ASDIRECTED Care 05/12/20 13:30 Active EKG 12 Lead [EK] Routine Ther 05/12/20 13:30 Ordered Medication Orders Amlodipine Besylate (Norvasc) 2.5 mg PO DAILY [facility] Clonidine HCl (Catapres) 0.2 mg PO BID [facility] Hydrochlorothiazide (Hydrochlorothiazide) 50 mg PO DAILY [facility] Isosorbide Mononitrate (Imdur) 30 mg PO DAILY [facility] Lisinopril (Prinivil) 40 mg PO DAILY [facility] Multivitamins/Minerals/Vitamin C (Tab-A-Tabitha) 1 tab PO DAILY [facility] Nitroglycerin (Nitrostat) 0.4 mg SL Q5M PRN PRN Reason: Chest Pain Potassium Chloride (Klor-Con M20) 20 meq PO DAILY [facility] Pravastatin Sodium (Pravachol) 80 mg PO BEDTIME [facility] Warfarin Sodium (Coumadin) 1.25 mg PO [id number] [facility] Labs: Laboratory Tests 05/12/20 05/12/20 05/12/20 Range/Units 14:11 14:11 14:11 WBC 13.7 H (4.5-12.0) X10-3/uL RBC 4.27 L (4.30-5.75) x10(6)uL Hgb 13.5 (13.5-17.8) g/dL Hct 41.5 (30.0-51.3) % MCV 97.1 H (80-96) fL MCH 31.5 (27.7-33.6) pg MCHC 32.4 (32.2-35.4) g/dL RDW 13.6 (11.5-15.5) % Plt Count 159 (125-369) X10(3)uL MPV 7.6 (7.4-10.4) fL Add Manual Diff Yes Neutrophils % (Manual) 79 (46-82) % Lymphocytes % (Manual) 11 L (13-37) % Monocytes % (Manual) 10 (4-12) % PT 42.4 H* (9.0-11.1) sec INR 4.33 H* (1.00-1.24) Sodium 137 (135-145) mmol/L Potassium 3.2 L (3.5-5.3) mmol/L Chloride 101 (100-110) mmol/L Carbon Dioxide 28 (21-32) mmol/L BUN 18 (7-18) mg/dL Creatinine 1.2 (0.70-1.30) mg/dL Est Cr Clr Drug Dosing TNP Estimated GFR (MDRD) 58 L (>60) BUN/Creatinine Ratio 15.0 (9-20) Glucose 129 H (80-116) mg/dL Calcium 9.2 (8.6-10.2) mg/dL Total Bilirubin 1.8 H (0.1-1.3) mg/dL AST 14 (5-25) IU/L ALT 11 L (12-36) U/L Alkaline Phosphatase 102 (56-112) IU/L Troponin I (4.0-60.3) pg/mL NT-Pro-B Natriuret Pep (<=450) pg/mL Total Protein 7.3 (6.0-8.0) g/dL Albumin 3.0 L (3.2-4.6) g/dL Globulin 4.3 g/dL Albumin/Globulin Ratio 0.7 SARS Virus RNA (PCR) (NEGATIVE) 05/12/20 05/12/20 05/12/20 Range/Units 14:11 14:11 14:33 WBC (4.5-12.0) X10-3/uL RBC (4.30-5.75) x10(6)uL Hgb (13.5-17.8) g/dL Hct (30.0-51.3) % MCV (80-96) fL MCH (27.7-33.6) pg MCHC (32.2-35.4) g/dL RDW (11.5-15.5) % Plt Count (125-369) X10(3)uL MPV (7.4-10.4) fL Add Manual Diff Neutrophils % (Manual) (46-82) % Lymphocytes % (Manual) (13-37) % Monocytes % (Manual) (4-12) % PT (9.0-11.1) sec INR (1.00-1.24) Sodium (135-145) mmol/L Potassium (3.5-5.3) mmol/L Chloride (100-110) mmol/L Carbon Dioxide (21-32) mmol/L BUN (7-18) mg/dL Creatinine (0.70-1.30) mg/dL Est Cr Clr Drug Dosing Estimated GFR (MDRD) (>60) BUN/Creatinine Ratio (9-20) Glucose (80-116) mg/dL Calcium (8.6-10.2) mg/dL Total Bilirubin (0.1-1.3) mg/dL AST (5-25) IU/L ALT (12-36) U/L Alkaline Phosphatase (56-112) IU/L Troponin I 18.7 (4.0-60.3) pg/mL NT-Pro-B Natriuret Pep 5642 H* (<=450) pg/mL Total Protein (6.0-8.0) g/dL Albumin (3.2-4.6) g/dL Globulin g/dL Albumin/Globulin Ratio SARS Virus RNA (PCR) Negative (NEGATIVE) Meds: Medications Generic Name Dose Route Start Last Admin Trade Name Freq PRN Reason Stop Dose Admin Amlodipine Besylate 2.5 mg 05/13/20 09:00 Norvasc PO DAILY [facility] Clonidine HCl 0.2 mg 05/13/20 09:00 Catapres PO BID [facility] Hydrochlorothiazide 50 mg 05/13/20 09:00 Hydrochlorothiazide PO DAILY [facility] Isosorbide Mononitrate 30 mg 05/13/20 09:00 Imdur PO DAILY [facility] Lisinopril 40 mg 05/13/20 09:00 Prinivil PO DAILY [facility] Multivitamins/Minerals/Vitamin C 1 tab 05/13/20 09:00 Tab-A-Tabitha PO DAILY [facility] Nitroglycerin 0.4 mg 05/12/20 22:26 Nitrostat SL Q5M PRN Chest Pain Potassium Chloride 20 meq 05/13/20 09:00 Klor-Con M20 PO DAILY [facility] Pravastatin Sodium 80 mg 05/13/20 21:00 Pravachol PO BEDTIME [facility] Warfarin Sodium 1.25 mg 05/13/20 16:00 Coumadin PO [id number] [facility] Discontinued Medications Generic Name Dose Route Start Last Admin Trade Name Godfrey PRN Reason Stop Dose Admin Potassium Chloride 40 meq 05/12/20 14:53 05/12/20 15:29 Potassium Chloride Solution PO 05/12/20 14:54 40 meq ONETIME ONE Administration Departure - Departure Time of Disposition: 21:00 Disposition: Admitted As Inpatient 65 Condition: Good Clinical Impression: Weakness, Edema - Discharge Information Sepsis Event Note (ED) - Evaluation Sepsis Screening Result: No Definite Risk - My Orders Last 24 Hours: My Active Orders 05/12/20 13:30 EKG Documentation Completion [RC] ASDIRECTED EKG 12 Lead [EK] Routine - Assessment/Plan Last 24 Hours: My Active Orders 05/12/20 13:30 EKG Documentation Completion [RC] ASDIRECTED EKG 12 Lead [EK] Routine
[2020-05-13] MEDS: cloNIDine 0.1 MG Tab PO SCH ×2 (08:48→20:20)
[2020-05-13] MEDS: Hydrochlorothiazide 25 MG Tab PO SCH (08:49)
[2020-05-13] MEDS: Isosorbide Mononitrate 30 MG Tab.ER PO SCH (08:50)
[2020-05-13] MEDS: Multivitamin Tab PO SCH (08:52)
[2020-05-13] MEDS: amLODIPine 2.5 MG Tab PO SCH (08:52)
[2020-05-13] MEDS ORDERED: Potassium Chloride 20 MEQ Tab.ER PO SCH (09:00)
[2020-05-13] MEDS ORDERED: Warfarin Sliding Scale PO SCH (10:15)
--- NOTE | 2020-05-13 11:09 | PCM.HP.2 ---
H&P History of Present Illness - General Date of Service: 05/13/20 Admit Problem/Dx: Admission Diagnosis/Problem Admission Diagnosis/Problem Edema of right lower extremity Source of Information: Patient, EMS Notes Reviewed - History of Present Illness Initial Comments - Free Text/Narative: Marcus presented to ER with his for progressive weakness over the last week, legs gave out and couldn't walk but did not fall. States his right knee swelling is from football injury in 1952, his told nursing that it had swelled since putting a cream on it for a skin lesion. Right leg edema, due for ultrasound today. Denies any fever, chills, sinus symptoms, cough, shortness of breath, chest pain or palpitations. No nausea or vomiting. No diarrhea or constipation, no issues urinating does have incontinent brief on. CT head was negative. COVID negative. Supratherapeutic INR, goal for Atrial fibrillation 2-3 and he was 4.4 yesterday, 3.37 this morning. WBC were 13.7, Potassium 3.3, Cr 1.1, BNP 5642. No redness of right knee or leg. Head Pain Score (Numeric/FACES): 2 - Related Data Allergies/Adverse Reactions: Allergies Allergy/AdvReac Type Severity Reaction Status Date / Time Penicillins Allergy Rash Verified 07/08/19 18:28 Home Medications: Home Meds Lisinopril 40 mg PO DAILY 12/21/16 [History] Potassium Chloride 20 meq PO DAILY 12/21/16 [History] Pravastatin Sodium 80 mg PO BEDTIME 12/21/16 [History] Warfarin [Coumadin] 1.25 mg PO SUMOWEFRSA 12/21/16 [History] Warfarin [Coumadin] 2.5 mg PO TUTH 12/21/16 [History] cloNIDine HCL [Catapres] 0.2 mg PO BID 12/21/16 [History] hydroCHLOROthiazide [Hydrochlorothiazide] 50 mg PO DAILY 12/21/16 [History] amLODIPine [Norvasc] 2.5 mg PO DAILY 12/22/16 [History] Isosorbide Mononitrate [Imdur] 30 mg PO DAILY 07/06/18 [History] Multivitamin with Minerals [Multiple Vitamin] 1 ea PO DAILY 07/06/18 [History] Nitroglycerin [Nitrostat] 0.4 mg SL Q5M PRN 05/12/20 [History] Past Medical History HEENT History: Reports: Cataract, Impaired Vision, Macular Degeneration Cardiovascular History: Reports: Afib, High Cholesterol, Hypertension, [place], Stents Respiratory History: Reports: None Gastrointestinal History: Reports: Colon Polyp, GERD Genitourinary History: Reports: Other (See Below) Other Genitourinary History: slow to start stream Musculoskeletal History: Reports: Other (See Below) Other Musculoskeletal History: knee injury Neurological History: Reports: CVA Psychiatric History: Reports: None Endocrine/Metabolic History: Reports: Obesity/BMI 30+ Hematologic History: Reports: None Immunologic History: Reports: None Oncologic (Cancer) History: Reports: None Dermatologic History: Reports: None - Infectious Disease History Infectious Disease History: Reports: Chicken Pox, Measles, Mumps - Past Surgical History Head Surgeries/Procedures: Reports: None HEENT Surgical History: Reports: Cataract Surgery, Tonsillectomy Cardiovascular Surgical History: Reports: Coronary Artery Stent Respiratory Surgical History: Reports: None GI Surgical History: Reports: Appendectomy, Colonoscopy, Hernia Repair/Other Male Surgical History: Reports: None, Other (See Below) Other Male Surgeries/Procedures: inc urine at times Endocrine Surgical History: Reports: None Neurological Surgical History: Reports: None Musculoskeletal Surgical History: Reports: None Oncologic Surgical History: Reports: None Dermatological Surgical History: Reports: None Social & Family History - Family History Family Medical History: Noncontributory - Tobacco Use Smoking Status *Q: Never Smoker Second Hand Smoke Exposure: No - Caffeine Use Caffeine Use: Reports: Coffee - Recreational Drug Use Recreational Drug Use: No H&P Review of Systems - Review of Systems: Review Of Systems: Comprehensive ROS is negative, except as noted in HPI. Exam - Exam Exam: See Below - Vital Signs Vital Signs: Last Vital Signs Temp 99.1 F 05/13/20 10:00 Pulse 84 05/13/20 10:00 Resp 18 05/13/20 10:00 BP 165/66 H 05/13/20 10:00 Pulse Ox 93 L 05/13/20 10:00 Weight: 203 lb 1.6 oz - Exam General: Alert, Oriented, Cooperative. No: Mild Distress HEENT: PERRLA, Mucosa Moist & [place] Lungs: Clear to Auscultation, Normal Respiratory Effort Cardiovascular: Regular Rate, Irregular Rhythm, Systolic Murmur GI/Abdominal Exam: Normal Bowel Sounds, Soft, Non-Tender, No Distention (Male) Exam: Deferred Rectal (Males) Exam: Deferred Extremities: Joint Swelling (right, NT, mild ecchymosis), Other (SCDs on BLE). No: Increased Warmth, Redness Peripheral Pulses: 2+: Radial (L), Radial (R) Skin: Ecchymosis (right knee) - Patient Data Lab Results Last 24 hrs: Laboratory Results - last 24 hr 05/12/20 05/12/20 05/12/20 Range/Units 14:11 14:11 14:11 WBC 13.7 H (4.5-12.0) X10-3/uL RBC 4.27 L (4.30-5.75) x10(6)uL Hgb 13.5 (13.5-17.8) g/dL Hct 41.5 (30.0-51.3) % MCV 97.1 H (80-96) fL MCH 31.5 (27.7-33.6) pg MCHC 32.4 (32.2-35.4) g/dL RDW 13.6 (11.5-15.5) % Plt Count 159 (125-369) X10(3)uL MPV 7.6 (7.4-10.4) fL Neut % (Auto) (46-82) % Lymph % (Auto) (13-37) % Mcleod % (Auto) (4-12) % Eos % (Auto) (1.0-5.0) % Baso % (Auto) (0-2) % Neut # (Auto) (1.6-8.3) # Lymph # (Auto) (0.6-5.0) # Mcleod # (Auto) (0.0-1.3) # Eos # (Auto) (0.0-0.8) # Baso # (Auto) (0.0-0.2) # Add Manual Diff Yes Neutrophils % (Manual) 79 (46-82) % Lymphocytes % (Manual) 11 L (13-37) % Monocytes % (Manual) 10 (4-12) % PT 42.4 H* (9.0-11.1) sec INR 4.33 H* (1.00-1.24) Sodium 137 (135-145) mmol/L Potassium 3.2 L (3.5-5.3) mmol/L Chloride 101 (100-110) mmol/L Carbon Dioxide 28 (21-32) mmol/L BUN 18 (7-18) mg/dL Creatinine 1.2 (0.70-1.30) mg/dL Est Cr Clr Drug Dosing TNP Estimated GFR (MDRD) 58 L (>60) BUN/Creatinine Ratio 15.0 (9-20) Glucose 129 H (80-116) mg/dL Calcium 9.2 (8.6-10.2) mg/dL Total Bilirubin 1.8 H (0.1-1.3) mg/dL AST 14 (5-25) IU/L ALT 11 L (12-36) U/L Alkaline Phosphatase 102 (56-112) IU/L Troponin I (4.0-60.3) pg/mL NT-Pro-B Natriuret Pep (<=450) pg/mL Total Protein 7.3 (6.0-8.0) g/dL Albumin 3.0 L (3.2-4.6) g/dL Globulin 4.3 g/dL Albumin/Globulin Ratio 0.7 SARS Virus RNA (PCR) (NEGATIVE) 05/12/20 05/12/20 05/12/20 Range/Units 14:11 14:11 14:33 WBC (4.5-12.0) X10-3/uL RBC (4.30-5.75) x10(6)uL Hgb (13.5-17.8) g/dL Hct (30.0-51.3) % MCV (80-96) fL MCH (27.7-33.6) pg MCHC (32.2-35.4) g/dL RDW (11.5-15.5) % Plt Count (125-369) X10(3)uL MPV (7.4-10.4) fL Neut % (Auto) (46-82) % Lymph % (Auto) (13-37) % Mcleod % (Auto) (4-12) % Eos % (Auto) (1.0-5.0) % Baso % (Auto) (0-2) % Neut # (Auto) (1.6-8.3) # Lymph # (Auto) (0.6-5.0) # Mcleod # (Auto) (0.0-1.3) # Eos # (Auto) (0.0-0.8) # Baso # (Auto) (0.0-0.2) # Add Manual Diff Neutrophils % (Manual) (46-82) % Lymphocytes % (Manual) (13-37) % Monocytes % (Manual) (4-12) % PT (9.0-11.1) sec INR (1.00-1.24) Sodium (135-145) mmol/L Potassium (3.5-5.3) mmol/L Chloride (100-110) mmol/L Carbon Dioxide (21-32) mmol/L BUN (7-18) mg/dL Creatinine (0.70-1.30) mg/dL Est Cr Clr Drug Dosing Estimated GFR (MDRD) (>60) BUN/Creatinine Ratio (9-20) Glucose (80-116) mg/dL Calcium (8.6-10.2) mg/dL Total Bilirubin (0.1-1.3) mg/dL AST (5-25) IU/L ALT (12-36) U/L Alkaline Phosphatase (56-112) IU/L Troponin I 18.7 (4.0-60.3) pg/mL NT-Pro-B Natriuret Pep 5642 H* (<=450) pg/mL Total Protein (6.0-8.0) g/dL Albumin (3.2-4.6) g/dL Globulin g/dL Albumin/Globulin Ratio SARS Virus RNA (PCR) Negative (NEGATIVE) 05/13/20 05/13/20 05/13/20 Range/Units 06:35 06:35 06:35 WBC 11.8 (4.5-12.0) X10-3/uL RBC 3.83 L (4.30-5.75) x10(6)uL Hgb 12.6 L (13.5-17.8) g/dL Hct 37.1 (30.0-51.3) % MCV 96.8 H (80-96) fL MCH 32.9 (27.7-33.6) pg MCHC 34.0 (32.2-35.4) g/dL RDW 13.5 (11.5-15.5) % Plt Count 146 (125-369) X10(3)uL MPV 8.0 (7.4-10.4) fL Neut % (Auto) 72.5 (46-82) % Lymph % (Auto) 11.9 L (13-37) % Mcleod % (Auto) 14.8 H (4-12) % Eos % (Auto) 1 (1.0-5.0) % Baso % (Auto) 0 (0-2) % Neut # (Auto) 8.6 H (1.6-8.3) # Lymph # (Auto) 1.4 (0.6-5.0) # Mcleod # (Auto) 1.7 H (0.0-1.3) # Eos # (Auto) 0.1 (0.0-0.8) # Baso # (Auto) 0.0 (0.0-0.2) # Add Manual Diff Neutrophils % (Manual) (46-82) % Lymphocytes % (Manual) (13-37) % Monocytes % (Manual) (4-12) % PT 33.6 H (9.0-11.1) sec INR 3.37 H (1.00-1.24) Sodium 138 (135-145) mmol/L Potassium 3.3 L (3.5-5.3) mmol/L Chloride 103 (100-110) mmol/L Carbon Dioxide 29 (21-32) mmol/L BUN 23 H (7-18) mg/dL Creatinine 1.1 (0.70-1.30) mg/dL Est Cr Clr Drug Dosing 47.50 Estimated GFR (MDRD) > 60 (>60) BUN/Creatinine Ratio 20.9 H (9-20) Glucose 113 (80-116) mg/dL Calcium 8.8 (8.6-10.2) mg/dL Total Bilirubin (0.1-1.3) mg/dL AST (5-25) IU/L ALT (12-36) U/L Alkaline Phosphatase (56-112) IU/L Troponin I (4.0-60.3) pg/mL NT-Pro-B Natriuret Pep (<=450) pg/mL Total Protein (6.0-8.0) g/dL Albumin (3.2-4.6) g/dL Globulin g/dL Albumin/Globulin Ratio SARS Virus RNA (PCR) (NEGATIVE) Result Diagrams: 05/13/20 06:35 05/13/20 06:35 Sepsis Event Note - Evaluation Sepsis Screening Result: No Definite Risk - Focused Exam Vital Signs: Vital Signs Temp Pulse Resp BP BP Pulse Ox 05/13/20 10:00 99.1 F 84 18 165/66 H 93 L 05/13/20 08:52 165/66 H 05/13/20 08:50 165/66 H 05/13/20 08:48 165/66 H 05/13/20 04:30 98.2 F 74 16 159/75 H 97 Date Exam was Performed: 05/13/20 Time Exam was Performed: 11:04 *Q Meaningful Use (ADM) - VTE Risk Assess *Q Each Risk Factor Represents 1 Point: Swollen Legs, Current Total Score 1 Point Risk Factors: 1 Each Risk Factor Represents 3 Points: Age 75 Years or Greater Total Score 3 Point Risk Factors: 3 - Problem List (1) Swelling of right knee joint SNOMED Code(s): 313990466 ICD Code: M25.461 - EFFUSION, RIGHT KNEE Status: Acute Current Visit: Yes (2) Edema SNOMED Code(s): 580701284, 694103880 ICD Code: R60.9 - EDEMA, UNSPECIFIED Status: Acute Current Visit: Yes (3) Weakness SNOMED Code(s): 00414484 ICD Code: R53.1 - WEAKNESS Status: Acute Current Visit: Yes (4) Hypertension SNOMED Code(s): 28139489 ICD Code: I10 - ESSENTIAL (PRIMARY) HYPERTENSION Status: Chronic Current Visit: No Problem List Initiated/Reviewed/Updated: Yes Orders Last 24hrs: Active Orders 24 hr Category Date Time Status Patient Status [ADT] Routine ADT 05/12/20 22:19 Active EKG Documentation Completion [RC] ASDIRECTED Care 05/12/20 13:30 Active Oxygen Therapy [RC] PRN Care 05/12/20 22:19 Active Up With Assistance [RC] ASDIRECTED Care 05/12/20 22:18 Active VTE/DVT Education [RC] Per Unit Routine Care 05/12/20 22:19 Active Vital Signs [RC] Q4H Care 05/12/20 22:19 Active OT Evaluation and Treatment [CONS] Routine Cons 05/13/20 07:46 Active PT Evaluation and Treatment [CONS] Routine Cons 05/12/20 22:18 Active Heart Healthy Diet [DIET] Diet 05/12/20 Dinner Ordered VL Duplex Lwr Ext Veins Ltd Rt [US] Routine Exams 05/13/20 09:22 Ordered BASIC METABOLIC PANEL,BMP [CHEM] Routine Lab 05/14/20 05:00 Ordered INR,PT,PROTHROMBIN TIME [COAG] AM Lab 05/14/20 05:11 Ordered Isosorbide Mononitrate [Imdur] Med 05/13/20 09:00 Active 30 mg PO DAILY Multivitamins [Tab-A-Tabitha] Med 05/13/20 09:00 Active 1 tab PO DAILY Nitroglycerin [Nitrostat] Med 05/12/20 22:26 Active 0.4 mg SL Q5M PRN Potassium Chloride [Klor-Con M20] Med 05/13/20 09:00 Active 20 meq PO DAILY Pravastatin [Pravachol] Med 05/13/20 21:00 Active 80 mg PO BEDTIME Warfarin Sliding Scale [Coumadin Sliding Scale] Med 05/13/20 10:15 Pending 1 each PO ASDIRECTED amLODIPine [Norvasc] Med 05/13/20 09:00 Active 2.5 mg PO DAILY cloNIDine [Catapres] Med 05/13/20 09:00 Active 0.2 mg PO BID hydroCHLOROthiazide Med 05/13/20 09:00 Active 50 mg PO DAILY lisinopriL [Prinivil] Med 05/13/20 09:00 Active 40 mg PO DAILY Sequential Compression Device [OM.PC] Per Unit Routine Oth 05/12/20 22:23 Ordered Resuscitation Status Routine Resus Stat 05/12/20 22:18 Ordered EKG 12 Lead [EK] Routine Ther 05/12/20 13:30 Ordered Medication Orders Amlodipine Besylate (Norvasc) 2.5 mg PO DAILY [facility] Last Admin: 05/13/20 08:52 Dose: 2.5 mg Documented by: JAKE Clonidine HCl (Catapres) 0.2 mg PO BID [facility] Last Admin: 05/13/20 08:48 Dose: 0.2 mg Documented by: JAKE Hydrochlorothiazide (Hydrochlorothiazide) 50 mg PO DAILY [facility] Last Admin: 05/13/20 08:49 Dose: 50 mg Documented by: JAKE Isosorbide Mononitrate (Imdur) 30 mg PO DAILY [facility] Last Admin: 05/13/20 08:50 Dose: 30 mg Documented by: JAKE Lisinopril (Prinivil) 40 mg PO DAILY [facility] Last Admin: 05/13/20 08:52 Dose: 40 mg Documented by: JAKE Multivitamins/Minerals/Vitamin C (Tab-A-Tabitha) 1 tab PO DAILY [facility] Last Admin: 05/13/20 08:52 Dose: 1 tab Documented by: JAKE Nitroglycerin (Nitrostat) 0.4 mg SL Q5M PRN PRN Reason: Chest Pain Potassium Chloride (Klor-Con M20) 20 meq PO DAILY [facility] Last Admin: 05/13/20 08:51 Dose: 20 meq Documented by: JAKE Pravastatin Sodium (Pravachol) 80 mg PO BEDTIME [facility] Warfarin Sodium (Coumadin Sliding Scale) 1 each PO ASDIRECTED [facility] Assessment/Plan Comment:: 1. Admit for Right leg edema, right knee swelling, weakness, difficulty walking, supratherapeutic INR. 2. Doppler ultrasound for today. 3. HOLD warfarin dose today, pharmacy to dose, daily INR. 4. PT/OT evaluate & treat. 5. Heat therapy to right knee qid as needed. 6. DVT prophylaxis: on Warfarin, supratherapeutic currently, goal to keep between 2-3. 7. FULL CODE. 8. Adjust treatments as necessary. - Mortality Measure Prognosis:: Poor
[2020-05-13] MEDS ORDERED: Warfarin 2.5 MG Tab PO SCH (16:00)
--- NOTE | 2020-05-13 17:37 | US ---
INDICATION: Right lower extremity edema, question DVT. DUPLEX ULTRASOUND, RIGHT LOWER EXTREMITY VEINS: Utilizing 2-D realtime, duplex Doppler spectral analysis and color flow imaging, examination of the right lower extremity veins, including the common femoral vein, proximal greater saphenous vein, proximal deep femoral vein, proximal femoral vein, mid femoral vein, distal femoral vein, popliteal vein, posterior tibial vein, anterior tibial vein, (peroneal vein not able to be visualized - difficult to evaluate this patient due to patient's inability to cooperate with the examination), revealed no evidence of deep venous thrombosis or obstruction. Compression views showed no abnormal lack of compression to suggest thrombosis. No evidence of incompetence of the valves was identified. IMPRESSION: Duplex ultrasound, right lower extremity veins, shows no evidence of deep venous thrombosis or incompetence. [facility]
[2020-05-13] MEDS: Pravastatin 20 MG Tab PO SCH (20:20)
[2020-05-14] MEDS: amLODIPine 2.5 MG Tab PO SCH (08:53)
[2020-05-14] MEDS: Isosorbide Mononitrate 30 MG Tab.ER PO SCH (08:54)
[2020-05-14] MEDS: Hydrochlorothiazide 25 MG Tab PO SCH (08:55)
[2020-05-14] MEDS: cloNIDine 0.1 MG Tab PO SCH ×2 (08:55→20:38)
[2020-05-14] MEDS: Multivitamin Tab PO SCH (08:58)
[2020-05-14] MEDS ORDERED: Potassium Chloride 20 MEQ Tab.ER PO SCH ×2 (09:00)
[2020-05-14] MEDS ORDERED: Potassium Chloride 20 MEQ Tab.ER PO ONE (09:00)
--- NOTE | 2020-05-14 11:25 | PCM.PN ---
- General Info Date of Service: 05/14/20 Admission Dx/Problem (Free Text): Marcus is feeling better today, Ultrasound did not show any DVT. Swelling in down in both legs today, some swelling of right knee. PT/OT recommended continued therapies in Swing bed, been here 2 midnights, so could not be transferred into swing bed until tomorrow. No shortness of breath, chest pain, or abdominal pain. - Patient Data Vitals - Most Recent: Last Vital Signs Temp 98.9 F 05/14/20 05:38 Pulse 86 05/14/20 05:38 Resp 18 05/14/20 05:38 BP 175/88 H 05/14/20 08:55 Pulse Ox 95 05/14/20 05:38 Weight - Most Recent: 203 lb 1.6 oz I&O - Last 24 Hours: Intake & Output 05/13/20 05/14/20 05/14/20 22:59 06:59 14:59 Intake Total 200 Balance 200 Lab Results Last 24 Hours: Laboratory Results - last 24 hr 05/14/20 05/14/20 Range/Units 06:20 06:20 PT 21.7 H (9.0-11.1) sec INR 2.11 H (1.00-1.24) Sodium 136 (135-145) mmol/L Potassium 3.1 L (3.5-5.3) mmol/L Chloride 100 (100-110) mmol/L Carbon Dioxide 29 (21-32) mmol/L BUN 22 H (7-18) mg/dL Creatinine 1.2 (0.70-1.30) mg/dL Est Cr Clr Drug Dosing 43.54 mL/min Estimated GFR (MDRD) 58 L (>60) BUN/Creatinine Ratio 18.3 (9-20) Glucose 124 H (80-116) mg/dL Calcium 8.7 (8.6-10.2) mg/dL Med Orders - Current: Current Medications Amlodipine Besylate (Norvasc) 2.5 mg PO DAILY [facility] Last Admin: 05/14/20 08:53 Dose: 2.5 mg Documented by: Clonidine HCl (Catapres) 0.2 mg PO BID [facility] Last Admin: 05/14/20 08:55 Dose: 0.2 mg Documented by: Hydrochlorothiazide (Hydrochlorothiazide) 50 mg PO DAILY [facility] Last Admin: 05/14/20 08:55 Dose: 50 mg Documented by: Isosorbide Mononitrate (Imdur) 30 mg PO DAILY [facility] Last Admin: 05/14/20 08:54 Dose: 30 mg Documented by: Lisinopril (Prinivil) 40 mg PO DAILY [facility] Last Admin: 05/14/20 08:58 Dose: 40 mg Documented by: Multivitamins/Minerals/Vitamin C (Tab-A-Tabitha) 1 tab PO DAILY [facility] Last Admin: 05/14/20 08:58 Dose: 1 tab Documented by: Nitroglycerin (Nitrostat) 0.4 mg SL Q5M PRN PRN Reason: Chest Pain Potassium Chloride (Klor-Con M20) 20 meq PO DAILY [facility] Last Admin: 05/14/20 08:54 Dose: 20 meq Documented by: Pravastatin Sodium (Pravachol) 80 mg PO BEDTIME [facility] Last Admin: 05/13/20 20:20 Dose: 80 mg Documented by: Warfarin Sodium (Coumadin Sliding Scale) 1 each PO ASDIRECTED [facility] Warfarin Sodium (Coumadin) 1.25 mg PO ONETIME ONE Stop: 05/14/20 16:01 Discontinued Medications Potassium Chloride (Potassium Chloride Solution) 40 meq PO ONETIME ONE Stop: 05/12/20 14:54 Last Admin: 05/12/20 15:29 Dose: 40 meq Documented by: Potassium Chloride (Klor-Con M20) 20 meq PO DAILY [facility] Last Admin: 05/13/20 08:51 Dose: 20 meq Documented by: Potassium Chloride (Klor-Con M20) 20 meq PO BID [facility] Potassium Chloride (Klor-Con M20) 20 meq PO ONETIME ONE Stop: 05/14/20 09:01 Last Admin: 05/14/20 08:54 Dose: 20 meq Documented by: Warfarin Sodium (Coumadin) 1.25 mg PO [id number] [facility] - Exam General: Alert, Oriented, Cooperative, No Acute Distress Lungs: Clear to Auscultation, Normal Respiratory Effort, Decreased Breath Sounds, Crackles (fine L>R). No: Rales, Wheezing Cardiovascular: Regular Rate, Regular Rhythm GI/Abdominal Exam: Normal Bowel Sounds, Soft, Non-Tender, No Distention Extremities: No Pedal Edema, Joint Swelling (right knee). No: Increased Warmth, Redness Peripheral Pulses: 2+: Radial (L), Radial (R) Skin: Other (Stasis dermatits BLE, chronic) Sepsis Event Note - Evaluation Sepsis Screening Result: No Definite Risk - Focused Exam Vital Signs: Vital Signs Temp Pulse Resp BP BP Pulse Ox 05/14/20 08:55 175/88 H 05/14/20 08:54 175/88 H 05/14/20 08:53 175/88 H 05/14/20 05:38 98.9 F 86 18 177/71 H 95 05/14/20 02:00 99.6 F 84 18 152/76 H 98 Date Exam was Performed: 05/14/20 Time Exam was Performed: 11:28 - Problem List & Annotations (1) Weakness SNOMED Code(s): 86163739 Code(s): R53.1 - WEAKNESS Status: Acute Current Visit: Yes (2) Swelling of right knee joint SNOMED Code(s): 011552055 Code(s): M25.461 - EFFUSION, RIGHT KNEE Status: Acute Current Visit: Yes (3) Edema SNOMED Code(s): 156117517, 706086923 Code(s): R60.9 - EDEMA, UNSPECIFIED Status: Resolved Current Visit: Yes (4) Hypertension SNOMED Code(s): 89521012 Code(s): I10 - ESSENTIAL (PRIMARY) HYPERTENSION Status: Chronic Current Visit: No - Problem List Review Problem List Initiated/Reviewed/Updated: Yes - My Orders Last 24 Hours: My Active Orders 05/13/20 10:15 Warfarin Sliding Scale [Coumadin Sliding Scale] 1 each PO ASDIRECTED 05/13/20 11:13 Cooling Warming Measures [RC] ASDIRECTED Heat Therapy [OM.PC] Routine 05/14/20 09:00 Potassium Chloride [Klor-Con M20] 20 meq PO DAILY 05/14/20 16:00 Warfarin [Coumadin] 1.25 mg PO ONETIME ONE - Plan Plan:: 1. Right leg edema resolved. Right knee swelling, weakness, difficulty walking: would benefit from swing bed placement for further therapies. Supratherapeutic INR resolved. 2. Doppler ultrasound: negative for DVT. Echo to assess CHF ordered for Monday. 3. Warfarin dose, pharmacy to dose, daily INR. 4. PT/OT evaluate & treat, recommended swing bed placement for further therapies. 5. Heat therapy to right knee qid as needed. 6. DVT prophylaxis: on Warfarin, supratherapeutic currently, goal to keep between 2-3. 7. FULL CODE. 8. Adjust treatments as necessary.
[2020-05-14] MEDS ORDERED: Warfarin 2.5 MG Tab PO ONE (16:00)
[2020-05-14] MEDS: Pravastatin 20 MG Tab PO SCH (20:39)
[2020-05-15 04:37] VITALS: BP 147/83; PULSE 84
--- NOTE | 2020-05-15 07:48 | PCM.PN ---
- General Info Date of Service: 05/15/20 Admission Dx/Problem (Free Text): This patient is without concerns today. He denies fevers, chills, cough, leg pain. He denies any urinary complaints. The nurses state that his urine looks junky and he is very weak. He supposed to be transferred to swing bed and is getting PT OT. - Patient Data Vitals - Most Recent: Last Vital Signs Temp 98.3 F 05/15/20 04:00 Pulse 84 05/15/20 04:00 Resp 16 05/15/20 04:00 BP 147/83 H 05/15/20 04:00 Pulse Ox 96 05/15/20 04:00 Weight - Most Recent: 202 lb 6.4 oz Lab Results Last 24 Hours: Laboratory Results - last 24 hr 05/14/20 05/15/20 05/15/20 Range/Units 06:20 05:55 05:55 PT 21.7 H 18.9 H (9.0-11.1) sec INR 2.11 H 1.82 H (1.00-1.24) Sodium 133 L (135-145) mmol/L Potassium 3.5 (3.5-5.3) mmol/L Chloride 99 L (100-110) mmol/L Carbon Dioxide 28 (21-32) mmol/L BUN 25 H (7-18) mg/dL Creatinine 1.1 (0.70-1.30) mg/dL Est Cr Clr Drug Dosing 47.50 mL/min Estimated GFR (MDRD) > 60 (>60) BUN/Creatinine Ratio 22.7 H (9-20) Glucose 124 H (80-116) mg/dL Calcium 8.6 (8.6-10.2) mg/dL Med Orders - Current: Current Medications Amlodipine Besylate (Norvasc) 2.5 mg PO DAILY [facility] Last Admin: 05/14/20 08:53 Dose: 2.5 mg Documented by: Clonidine HCl (Catapres) 0.2 mg PO BID [facility] Last Admin: 05/14/20 20:38 Dose: 0.2 mg Documented by: Hydrochlorothiazide (Hydrochlorothiazide) 50 mg PO DAILY [facility] Last Admin: 05/14/20 08:55 Dose: 50 mg Documented by: Isosorbide Mononitrate (Imdur) 30 mg PO DAILY [facility] Last Admin: 05/14/20 08:54 Dose: 30 mg Documented by: Lisinopril (Prinivil) 40 mg PO DAILY [facility] Last Admin: 05/14/20 08:58 Dose: 40 mg Documented by: Multivitamins/Minerals/Vitamin C (Tab-A-Tabitha) 1 tab PO DAILY [facility] Last Admin: 05/14/20 08:58 Dose: 1 tab Documented by: Nitroglycerin (Nitrostat) 0.4 mg SL Q5M PRN PRN Reason: Chest Pain Potassium Chloride (Klor-Con M20) 20 meq PO DAILY [facility] Last Admin: 05/14/20 08:54 Dose: 20 meq Documented by: Pravastatin Sodium (Pravachol) 80 mg PO BEDTIME [facility] Last Admin: 05/14/20 20:39 Dose: 80 mg Documented by: Warfarin Sodium (Coumadin Sliding Scale) 1 each PO ASDIRECTED [facility] Discontinued Medications Potassium Chloride (Potassium Chloride Solution) 40 meq PO ONETIME ONE Stop: 05/12/20 14:54 Last Admin: 05/12/20 15:29 Dose: 40 meq Documented by: Potassium Chloride (Klor-Con M20) 20 meq PO DAILY [facility] Last Admin: 05/13/20 08:51 Dose: 20 meq Documented by: Potassium Chloride (Klor-Con M20) 20 meq PO BID [facility] Potassium Chloride (Klor-Con M20) 20 meq PO ONETIME ONE Stop: 05/14/20 09:01 Last Admin: 05/14/20 08:54 Dose: 20 meq Documented by: Warfarin Sodium (Coumadin) 1.25 mg PO [id number]@1600 [facility] Warfarin Sodium (Coumadin) 1.25 mg PO ONETIME ONE Stop: 05/14/20 16:01 Last Admin: 05/14/20 16:55 Dose: 1.25 mg Documented by: - Exam General: Alert, Cooperative. No: Oriented Lungs: Clear to Auscultation, Normal Respiratory Effort Cardiovascular: Regular Rate, Regular Rhythm, Murmurs Extremities: No Pedal Edema, Other (No rash on the legs) Psy/Mental Status: Alert, Normal Affect, Normal Mood Sepsis Event Note - Evaluation Sepsis Screening Result: No Definite Risk - Focused Exam Vital Signs: Vital Signs Temp Pulse Resp BP BP Pulse Ox Pulse Ox 05/15/20 04:00 98.3 F 84 16 147/83 H 96 05/14/20 22:00 97 05/14/20 20:38 144/75 H 05/14/20 20:00 98.8 F 94 16 144/75 H 97 Date Exam was Performed: 05/15/20 Time Exam was Performed: 07:46 - Problem List & Annotations (1) Hypokalemia SNOMED Code(s): 72732249 Code(s): E87.6 - HYPOKALEMIA Status: Acute Current Visit: Yes (2) Swelling of right knee joint SNOMED Code(s): 261370449 Code(s): M25.461 - EFFUSION, RIGHT KNEE Status: Acute Current Visit: Yes (3) Weakness SNOMED Code(s): 17822423 Code(s): R53.1 - WEAKNESS Status: Acute Current Visit: Yes (4) Edema SNOMED Code(s): 731175358, 771700967 Code(s): R60.9 - EDEMA, UNSPECIFIED Status: Resolved Current Visit: Yes - Problem List Review Problem List Initiated/Reviewed/Updated: Yes - Plan Plan:: 1. Transfer to swing bed. 2. There is an echo ordered for him and I'll do that on swing bed orders. 3. His urine has looked abnormal since he has been in here. It is not been checked out of the on the swing bed orders. Does not why he is here. He'll get PTOT in swing bed
--- NOTE | 2020-05-15 07:53 | PCM.DCSUM1 ---
Discharge Summary - Hospital Course Free Text/Narrative:: Patient was admitted and inpatient. He had a CT scan that showed old lacunar infarct and cerebrovascular disease but nothing acute. He also had a DVT ultrasound that was negative. His leg got better as he was here his potassium was low and was given extra potassium. Patient was profoundly weak and required lots of assistance to stand up. PT/OT were ordered and they felt he was a good candidate for swing bed. He'll be transferred to swing bed. His Coumadin was managed by pharmacy while he was here. Brief History: Marcus presented to ER with his for progressive weakness over the last week, legs gave out and couldn't walk but did not fall. States his right knee swelling is from football injury in 1952, his told nursing that it had swelled since putting a cream on it for a skin lesion. Right leg edema, due for ultrasound today. Denies any fever, chills, sinus symptoms, cough, shortness of breath, chest pain or palpitations. No nausea or vomiting. No diarrhea or constipation, no issues urinating does have incontinent brief on. CT head was negative. COVID negative. Supratherapeutic INR, goal for Atrial fibrillation 2-3 and he was 4.4 yesterday, 3.37 this morning. WBC were 13.7, Potassium 3.3, Cr 1.1, BNP 5642. No redness of right knee or leg. Diagnosis: Stroke: No - Discharge Data Discharge Date: 05/15/20 Discharge Disposition: DC/Tfer W/I Hosp To [place] [id number] Condition: Stable - Referral to Home Health Primary Care Physician: William Girard MD - Discharge Diagnosis/Problem(s) (1) Hypokalemia SNOMED Code(s): 46975092 ICD Code: E87.6 - HYPOKALEMIA Status: Acute Current Visit: Yes (2) Swelling of right knee joint SNOMED Code(s): 029512164 ICD Code: M25.461 - EFFUSION, RIGHT KNEE Status: Acute Current Visit: Yes (3) Weakness SNOMED Code(s): 70943345 ICD Code: R53.1 - WEAKNESS Status: Acute Current Visit: Yes (4) Edema SNOMED Code(s): 747695822, 267221587 ICD Code: R60.9 - EDEMA, UNSPECIFIED Status: Resolved Current Visit: Yes - Patient Summary/Data Consults: Consultations 05/12/20 22:18 PT Evaluation and Treatment [CONS] Routine Please Evaluate and Treat. PT Reason for Consult: Strengthening This query below is only for informational purposes and is not editable. 05/13/20 07:46 OT Evaluation and Treatment [CONS] Routine Please Evaluate and Treat. OT Reason for Consult: ADL's This query below is only for informational purposes and is not editable. Admission Diagnosis/Problem: Edema of right lower extremity - Patient Instructions Diet: Regular Diet as Tolerated Activity: As Tolerated Driving: Do Not Drive Showering/Bathing: May Shower Other/Special Instructions: 1. Transfer to swing bed for PT/OT. - Discharge Plan Home Medications: Home Meds Lisinopril 40 mg PO DAILY 12/21/16 [History] Potassium Chloride 20 meq PO DAILY 12/21/16 [History] Pravastatin Sodium 80 mg PO BEDTIME 12/21/16 [History] Warfarin [Coumadin] 1.25 mg PO SUMOWEFRSA 12/21/16 [History] Warfarin [Coumadin] 2.5 mg PO TUTH 12/21/16 [History] cloNIDine HCL [Catapres] 0.2 mg PO BID 12/21/16 [History] hydroCHLOROthiazide [Hydrochlorothiazide] 50 mg PO DAILY 12/21/16 [History] amLODIPine [Norvasc] 2.5 mg PO DAILY 12/22/16 [History] Isosorbide Mononitrate [Imdur] 30 mg PO DAILY 07/06/18 [History] Multivitamin with Minerals [Multiple Vitamin] 1 ea PO DAILY 07/06/18 [History] Nitroglycerin [Nitrostat] 0.4 mg SL Q5M PRN 05/12/20 [History] Patient Handouts: Fall Prevention in Hospitals, Adult, Venous Thromboembolism Prevention Forms: ED Department Discharge Referrals: William Girard MD [Primary Care Provider] - - Discharge Summary/Plan Comment DC Time >30 min.: No - Patient Data Vitals - Most Recent: Last Vital Signs Temp 98.3 F 05/15/20 04:00 Pulse 84 05/15/20 04:00 Resp 16 05/15/20 04:00 BP 147/83 H 05/15/20 04:00 Pulse Ox 96 05/15/20 04:00 Weight - Most Recent: 202 lb 6.4 oz Lab Results - Last 24 hrs: Laboratory Results - last 24 hr 05/15/20 05/15/20 Range/Units 05:55 05:55 PT 18.9 H (9.0-11.1) sec INR 1.82 H (1.00-1.24) Sodium 133 L (135-145) mmol/L Potassium 3.5 (3.5-5.3) mmol/L Chloride 99 L (100-110) mmol/L Carbon Dioxide 28 (21-32) mmol/L BUN 25 H (7-18) mg/dL Creatinine 1.1 (0.70-1.30) mg/dL Est Cr Clr Drug Dosing 47.50 mL/min Estimated GFR (MDRD) > 60 (>60) BUN/Creatinine Ratio 22.7 H (9-20) Glucose 124 H (80-116) mg/dL Calcium 8.6 (8.6-10.2) mg/dL Med Orders - Current: Current Medications Amlodipine Besylate (Norvasc) 2.5 mg PO DAILY [facility] Last Admin: 05/14/20 08:53 Dose: 2.5 mg Documented by: Clonidine HCl (Catapres) 0.2 mg PO BID [facility] Last Admin: 05/14/20 20:38 Dose: 0.2 mg Documented by: Hydrochlorothiazide (Hydrochlorothiazide) 50 mg PO DAILY [facility] Last Admin: 05/14/20 08:55 Dose: 50 mg Documented by: Isosorbide Mononitrate (Imdur) 30 mg PO DAILY [facility] Last Admin: 05/14/20 08:54 Dose: 30 mg Documented by: Lisinopril (Prinivil) 40 mg PO DAILY [facility] Last Admin: 05/14/20 08:58 Dose: 40 mg Documented by: Multivitamins/Minerals/Vitamin C (Tab-A-Tabitha) 1 tab PO DAILY [facility] Last Admin: 05/14/20 08:58 Dose: 1 tab Documented by: Nitroglycerin (Nitrostat) 0.4 mg SL Q5M PRN PRN Reason: Chest Pain Potassium Chloride (Klor-Con M20) 20 meq PO DAILY [facility] Last Admin: 05/14/20 08:54 Dose: 20 meq Documented by: Pravastatin Sodium (Pravachol) 80 mg PO BEDTIME [facility] Last Admin: 05/14/20 20:39 Dose: 80 mg Documented by: Warfarin Sodium (Coumadin Sliding Scale) 1 each PO ASDIRECTED [facility] Discontinued Medications Potassium Chloride (Potassium Chloride Solution) 40 meq PO ONETIME ONE Stop: 05/12/20 14:54 Last Admin: 05/12/20 15:29 Dose: 40 meq Documented by: Potassium Chloride (Klor-Con M20) 20 meq PO DAILY [facility] Last Admin: 05/13/20 08:51 Dose: 20 meq Documented by: Potassium Chloride (Klor-Con M20) 20 meq PO BID [facility] Potassium Chloride (Klor-Con M20) 20 meq PO ONETIME ONE Stop: 05/14/20 09:01 Last Admin: 05/14/20 08:54 Dose: 20 meq Documented by: Warfarin Sodium (Coumadin) 1.25 mg PO [id number]@1600 [facility] Warfarin Sodium (Coumadin) 1.25 mg PO ONETIME ONE Stop: 05/14/20 16:01 Last Admin: 05/14/20 16:55 Dose: 1.25 mg Documented by:
[2020-05-15] MEDS ORDERED: Warfarin 2.5 MG Tab PO ONE (16:00)
== END 2020-05-15 07:59 | disposition swing bed (61) | DRG 948 ==
LOC: FB.ED 12:46 → FB.MS 21:45 → FB.ED 22:00
PROVIDERS: ADMIT Emergency Medicine; ATTEND Family Medicine
DX: R60.0 Localized edema (principal); E87.6 Hypokalemia; R53.1 Weakness; R60.9 Edema, unspecified; H35.30 Unspecified macular degeneration; H54.7 Unspecified visual loss; Z20.828 Contact with and (suspected) exposure to other viral communicable diseases; I48.91 Unspecified atrial fibrillation; E78.00 Pure hypercholesterolemia, unspecified; I10 Essential (primary) hypertension; I25.2 Old myocardial infarction; Z95.5 Presence of coronary angioplasty implant and graft; K21.9 Gastro-esophageal reflux disease without esophagitis; Z68.30 Body mass index [BMI] 30.0-30.9, adult; Z86.010 Personal history of colon polyps; Z86.73 Personal history of transient ischemic attack (TIA), and cerebral infarction without residual deficits; E66.9 Obesity, unspecified; Z98.49 Cataract extraction status, unspecified eye; Z88.0 Allergy status to penicillin; Z79.01 Long term (current) use of anticoagulants; Z79.899 Other long term (current) drug therapy
CPT/HCPCS: 36415; 70450; 80053; 83880; 84484; 85025; 85610; 93005; 99285; A9270; U0002; 80048; 93971-RT; 97161-GP; 97165-GO; 97530-GP; 97535-GO; 99284

== ENCOUNTER 2020-05-15 08:00 | Inpatient (IN) | payer MEDICARE, BC ==
[2020-05-15] MEDS ORDERED: Nitroglycerin 0.4 MG Tab.SL SL PRN (09:15)
[2020-05-15] MEDS ORDERED: Warfarin Sliding Scale PO SCH ×2 (09:15→09:30)
[2020-05-15] MEDS ORDERED: Warfarin 2.5 MG Tab PO SCH (09:15)
--- NOTE | 2020-05-15 09:15 | PCM.HP.2 ---
H&P History of Present Illness - General Date of Service: 05/15/20 Admit Problem/Dx: Admission Diagnosis/Problem Admission Diagnosis/Problem Weakness Source of Information: Patient, Old Records History Limitations: Reports: Altered Mental Status - History of Present Illness Initial Comments - Free Text/Narative: This is a 84-year-old male patient that was switched swing bed after her acute stay for right leg pain and tremendous weakness. He has some hypokalemia that was corrected with potassium. He did have a ultrasound of his leg but did not show any DVT. He has history of CHF and A. fib. Had a CT of his head that showed old lacunar infarct and some structural vascular disease but no acute events. Patient was profoundly weak where he cannot walk without to assist. PT/OT saw him and felt he would be a good candidate for swing bed. - Related Data Allergies/Adverse Reactions: Allergies Allergy/AdvReac Type Severity Reaction Status Date / Time Penicillins Allergy Rash Verified 07/08/19 18:28 Home Medications: Home Meds Lisinopril 40 mg PO DAILY 12/21/16 [History] Potassium Chloride 20 meq PO DAILY 12/21/16 [History] Pravastatin Sodium 80 mg PO BEDTIME 12/21/16 [History] Warfarin [Coumadin] 1.25 mg PO SUMOWEFRSA 12/21/16 [History] Warfarin [Coumadin] 2.5 mg PO TUTH 12/21/16 [History] cloNIDine HCL [Catapres] 0.2 mg PO BID 12/21/16 [History] hydroCHLOROthiazide [Hydrochlorothiazide] 50 mg PO DAILY 12/21/16 [History] amLODIPine [Norvasc] 2.5 mg PO DAILY 12/22/16 [History] Isosorbide Mononitrate [Imdur] 30 mg PO DAILY 07/06/18 [History] Multivitamin with Minerals [Multiple Vitamin] 1 ea PO DAILY 07/06/18 [History] Nitroglycerin [Nitrostat] 0.4 mg SL Q5M PRN 05/12/20 [History] Past Medical History HEENT History: Reports: Cataract, Impaired Vision, Macular Degeneration Cardiovascular History: Reports: Afib, High Cholesterol, Hypertension, CT, Stents Respiratory History: Reports: None Gastrointestinal History: Reports: Colon Polyp, GERD Genitourinary History: Reports: Other (See Below) Other Genitourinary History: slow to start stream Musculoskeletal History: Reports: Other (See Below) Other Musculoskeletal History: knee injury Neurological History: Reports: CVA Psychiatric History: Reports: None Endocrine/Metabolic History: Reports: Obesity/BMI 30+ Hematologic History: Reports: None Immunologic History: Reports: None Oncologic (Cancer) History: Reports: None Dermatologic History: Reports: None - Infectious Disease History Infectious Disease History: Reports: Chicken Pox, Measles, Mumps - Past Surgical History Head Surgeries/Procedures: Reports: None HEENT Surgical History: Reports: Cataract Surgery, Tonsillectomy Cardiovascular Surgical History: Reports: Coronary Artery Stent Respiratory Surgical History: Reports: None GI Surgical History: Reports: Appendectomy, Colonoscopy, Hernia Repair/Other Male Surgical History: Reports: None, Other (See Below) Other Male Surgeries/Procedures: inc urine at times Endocrine Surgical History: Reports: None Neurological Surgical History: Reports: None Musculoskeletal Surgical History: Reports: None Oncologic Surgical History: Reports: None Dermatological Surgical History: Reports: None Social & Family History - Family History Family Medical History: Noncontributory - Caffeine Use Caffeine Use: Reports: Coffee H&P Review of Systems - Review of Systems: Review Of Systems: See Below General: Reports: Weakness. Denies: Fever, Chills, Decreased Appetite HEENT: Reports: No Symptoms Pulmonary: Reports: No Symptoms Cardiovascular: Reports: No Symptoms Gastrointestinal: Reports: No Symptoms Genitourinary: Reports: No Symptoms Musculoskeletal: Reports: No Symptoms Skin: Reports: No Symptoms Psychiatric: Reports: No Symptoms Neurological: Reports: No Symptoms Hematologic/Lymphatic: Reports: No Symptoms Immunologic: Reports: No Symptoms Exam - Exam Exam: See Below - Exam General: Alert, Cooperative, Other (Patient has a hard time recalling answers.) HEENT: Hearing Intact, TMs Clear Neck: Supple, Trachea Midline Lungs: Clear to Auscultation, Normal Respiratory Effort. No: Crackles, Rales Cardiovascular: Regular Rate, Regular Rhythm, Systolic Murmur GI/Abdominal Exam: Normal Bowel Sounds, Soft, Non-Tender Rectal (Males) Exam: Normal Exam Extremities: Normal Inspection, No Pedal Edema Neuro Extensive - Mental Status: Alert, Normal Mood/Affect. No: Normal Cognition Sepsis Event Note - Focused Exam Date Exam was Performed: 05/15/20 Time Exam was Performed: 09:10 - Problem List (1) Swelling of right knee joint SNOMED Code(s): 616001746 ICD Code: M25.461 - EFFUSION, RIGHT KNEE Status: Acute Current Visit: No (2) Weakness SNOMED Code(s): 45588816 ICD Code: R53.1 - WEAKNESS Status: Acute Current Visit: No (3) Edema SNOMED Code(s): 143747089, 877549980 ICD Code: R60.9 - EDEMA, UNSPECIFIED Status: Resolved Current Visit: No Problem List Initiated/Reviewed/Updated: Yes Orders Last 24hrs: Active Orders 24 hr Category Date Time Status Patient Status [ADT] Routine ADT 05/15/20 09:05 Active Height and Weight [RC] WEEKLY Care 05/15/20 09:05 Active May Shower [RC] ASDIRECTED Care 05/15/20 09:05 Active Oxygen Therapy [RC] PRN Care 05/15/20 09:05 Active Up With Assistance [RC] ASDIRECTED Care 05/15/20 09:05 Active Up to Chair [RC] ASDIRECTED Care 05/15/20 09:05 Active VTE/DVT Education [RC] Per Unit Routine Care 05/15/20 09:05 Active Vital Signs [RC] PER UNIT ROUTINE Care 05/15/20 09:05 Active OT Evaluation and Treatment [CONS] Routine Cons 05/15/20 09:05 Active PT Evaluation and Treatment [CONS] Routine Cons 05/15/20 09:05 Active Regular Diet [DIET] Diet 05/15/20 Lunch Active Echo Comp w Cont [US] Routine Exams 05/15/20 09:08 Ordered Resuscitation Status Routine Resus Stat 05/15/20 09:05 Ordered Assessment/Plan Comment:: 1. Transfer to swing bed 2. Full code 3. PT/OT. 4. Echocardiogram and UA. Echo was ordered before he was transferred and would discontinue the order. Nurses report his urine has been abnormal looking since she's been in here and is been week so we will proceed with a UA. Patient did not have a urinary tract infection caused by this institution. 5. Regular medications and back to his normal potassium. 6. Regular diet 7. Daily INR with pharmacy adjusting his Coumadin level 8. Up with assist, up in the chair.
[2020-05-15] MEDS: Potassium Chloride 20 MEQ Tab.ER PO SCH (10:36)
[2020-05-15] MEDS: Hydrochlorothiazide 25 MG Tab PO SCH (10:37)
[2020-05-15] MEDS: Isosorbide Mononitrate 30 MG Tab.ER PO SCH (10:37)
[2020-05-15] MEDS: cloNIDine 0.1 MG Tab PO SCH ×2 (10:37→20:00)
[2020-05-15] MEDS: amLODIPine 2.5 MG Tab PO SCH (10:38)
[2020-05-15] MEDS: Multivitamin Tab PO SCH (10:38)
[2020-05-15] MEDS ORDERED: Warfarin 2.5 MG Tab PO ONE (16:00)
[2020-05-15] MEDS: Pravastatin 20 MG Tab PO SCH (20:00)
[2020-05-16] MEDS: Potassium Chloride 20 MEQ Tab.ER PO SCH (08:12)
[2020-05-16] MEDS: Multivitamin Tab PO SCH (08:12)
[2020-05-16] MEDS: cloNIDine 0.1 MG Tab PO SCH ×2 (08:12→19:59)
[2020-05-16] MEDS: Isosorbide Mononitrate 30 MG Tab.ER PO SCH (08:13)
[2020-05-16] MEDS: Hydrochlorothiazide 25 MG Tab PO SCH (08:13)
[2020-05-16] MEDS: amLODIPine 2.5 MG Tab PO SCH (08:13)
[2020-05-16] MEDS ORDERED: Warfarin 2.5 MG Tab PO SCH (16:00)
[2020-05-16] MEDS: Pravastatin 20 MG Tab PO SCH (19:59)
[2020-05-17] MEDS: Hydrochlorothiazide 25 MG Tab PO SCH (08:53)
[2020-05-17] MEDS: cloNIDine 0.1 MG Tab PO SCH ×2 (08:53→20:16)
[2020-05-17] MEDS: Multivitamin Tab PO SCH (08:54)
[2020-05-17] MEDS: amLODIPine 2.5 MG Tab PO SCH (08:54)
[2020-05-17] MEDS: Isosorbide Mononitrate 30 MG Tab.ER PO SCH (08:54)
[2020-05-17] MEDS: Potassium Chloride 20 MEQ Tab.ER PO SCH (08:54)
[2020-05-17] MEDS ORDERED: Warfarin 2.5 MG Tab PO SCH (16:00)
[2020-05-17] MEDS: Pravastatin 20 MG Tab PO SCH (20:16)
[2020-05-18] MEDS: Potassium Chloride 20 MEQ Tab.ER PO SCH (09:09)
[2020-05-18] MEDS: Multivitamin Tab PO SCH (09:09)
[2020-05-18] MEDS: cloNIDine 0.1 MG Tab PO SCH ×2 (09:13→20:36)
[2020-05-18] MEDS: Isosorbide Mononitrate 30 MG Tab.ER PO SCH (09:14)
[2020-05-18] MEDS: amLODIPine 2.5 MG Tab PO SCH (09:14)
[2020-05-18] MEDS: Hydrochlorothiazide 25 MG Tab PO SCH (09:14)
--- NOTE | 2020-05-18 14:57 | PCM.PN ---
- General Info Date of Service: 05/18/20 Admission Dx/Problem (Free Text): Patient is without complaints. He says his knees do not hurt. The nurse stated there says they do. He denies any chest pain or shortness of breath today. Still very weak according to the staff. - Patient Data Vitals - Most Recent: Last Vital Signs Temp 98.4 F 05/18/20 09:11 Pulse 100 05/18/20 09:11 Resp 18 05/18/20 09:11 BP 169/85 H 05/18/20 09:14 Pulse Ox 96 05/18/20 09:11 Weight - Most Recent: 202 lb 6.4 oz Lab Results Last 24 Hours: Laboratory Results - last 24 hr 05/18/20 Range/Units 06:50 PT 21.5 H (9.0-11.1) sec INR 2.09 H (1.00-1.24) Med Orders - Current: Current Medications Amlodipine Besylate (Norvasc) 2.5 mg PO DAILY [facility] Last Admin: 05/18/20 09:14 Dose: 2.5 mg Documented by: Clonidine HCl (Catapres) 0.2 mg PO BID [facility] Last Admin: 05/18/20 09:13 Dose: 0.2 mg Documented by: Hydrochlorothiazide (Hydrochlorothiazide) 50 mg PO DAILY [facility] Last Admin: 05/18/20 09:14 Dose: 50 mg Documented by: Isosorbide Mononitrate (Imdur) 30 mg PO DAILY [facility] Last Admin: 05/18/20 09:14 Dose: 30 mg Documented by: Lisinopril (Prinivil) 40 mg PO DAILY [facility] Last Admin: 05/18/20 09:18 Dose: 40 mg Documented by: Multivitamins/Minerals/Vitamin C (Tab-A-Tabitha) 1 tab PO DAILY [facility] Last Admin: 05/18/20 09:09 Dose: 1 tab Documented by: Nitroglycerin (Nitrostat) 0.4 mg SL Q5M PRN PRN Reason: Chest Pain Potassium Chloride (Klor-Con M20) 20 meq PO DAILY [facility] Last Admin: 05/18/20 09:09 Dose: 20 meq Documented by: Pravastatin Sodium (Pravachol) 80 mg PO BEDTIME [facility] Last Admin: 05/17/20 20:16 Dose: 80 mg Documented by: Warfarin Sodium (Coumadin Sliding Scale) 1 each PO ASDIRECTED [facility] Warfarin Sodium (Coumadin) 2.5 mg PO TuTh@1600 [facility] Warfarin Sodium (Coumadin) 1.25 mg PO SuMoWeFrSa@1600 [facility] Discontinued Medications Warfarin Sodium (Coumadin) 2.5 mg PO 1600 ONE Stop: 05/15/20 16:01 Last Admin: 05/15/20 16:36 Dose: 2.5 mg Documented by: Warfarin Sodium (Coumadin) 1.25 mg PO 1600 [facility] Stop: 05/16/20 16:01 Last Admin: 05/16/20 16:13 Dose: 1.25 mg Documented by: Warfarin Sodium (Coumadin) 1.25 mg PO 1600 [facility] Stop: 05/17/20 16:01 Last Admin: 05/17/20 16:08 Dose: 1.25 mg Documented by: - Exam General: Alert, Cooperative Lungs: Clear to Auscultation, Normal Respiratory Effort Cardiovascular: Regular Rate, Regular Rhythm Extremities: Other (No left knee pain on palpation) Sepsis Event Note - Evaluation Sepsis Screening Result: No Definite Risk - Focused Exam Vital Signs: Vital Signs Temp Pulse Resp BP BP Pulse Ox 05/18/20 09:14 169/85 H 05/18/20 09:13 169/85 H 05/18/20 09:11 98.4 F 100 18 169/85 H 96 Date Exam was Performed: 05/18/20 Time Exam was Performed: 14:56 - Problem List & Annotations (1) Swelling of right knee joint SNOMED Code(s): 983559226 Code(s): M25.461 - EFFUSION, RIGHT KNEE Status: Acute Current Visit: No (2) Weakness SNOMED Code(s): 80860569 Code(s): R53.1 - WEAKNESS Status: Acute Current Visit: No (3) Edema SNOMED Code(s): 153941914, 588464836 Code(s): R60.9 - EDEMA, UNSPECIFIED Status: Resolved Current Visit: No - Problem List Review Problem List Initiated/Reviewed/Updated: Yes - My Orders Last 24 Hours: My Active Orders 05/18/20 16:00 Warfarin [Coumadin] 1.25 mg PO SuMoWeFrSa@1600 05/19/20 09:30 INR,PT,PROTHROMBIN TIME [COAG] DAILY 05/19/20 16:00 Warfarin [Coumadin] 2.5 mg PO TuTh@1600 05/20/20 09:30 INR,PT,PROTHROMBIN TIME [COAG] DAILY - Plan Plan:: 1. Continue current care.
[2020-05-18] MEDS: Warfarin 2.5 MG Tab PO SCH (16:30)
[2020-05-18] MEDS: Pravastatin 20 MG Tab PO SCH (20:37)
[2020-05-19] MEDS ORDERED: Warfarin 2.5 MG Tab PO SCH (09:15)
[2020-05-19] MEDS: Isosorbide Mononitrate 30 MG Tab.ER PO SCH (11:10)
[2020-05-19] MEDS: Hydrochlorothiazide 25 MG Tab PO SCH (11:10)
[2020-05-19] MEDS: cloNIDine 0.1 MG Tab PO SCH ×2 (11:10→20:10)
[2020-05-19] MEDS: amLODIPine 2.5 MG Tab PO SCH (11:11)
[2020-05-19] MEDS: Potassium Chloride 20 MEQ Tab.ER PO SCH (11:11)
[2020-05-19] MEDS: Multivitamin Tab PO SCH (11:11)
[2020-05-19] MEDS: Warfarin 2.5 MG Tab PO SCH (17:19)
[2020-05-19] MEDS: Pravastatin 20 MG Tab PO SCH (20:10)
[2020-05-20] MEDS: cloNIDine 0.1 MG Tab PO SCH ×2 (08:12→20:08)
[2020-05-20] MEDS: amLODIPine 2.5 MG Tab PO SCH (08:13)
[2020-05-20] MEDS: Hydrochlorothiazide 25 MG Tab PO SCH (08:13)
[2020-05-20] MEDS: Isosorbide Mononitrate 30 MG Tab.ER PO SCH (08:13)
[2020-05-20] MEDS: Potassium Chloride 20 MEQ Tab.ER PO SCH (08:13)
[2020-05-20] MEDS: Multivitamin Tab PO SCH (08:14)
[2020-05-20] MEDS: Warfarin 2.5 MG Tab PO SCH (16:28)
[2020-05-20] MEDS: Pravastatin 20 MG Tab PO SCH (20:09)
[2020-05-21] MEDS: cloNIDine 0.1 MG Tab PO SCH ×2 (08:30→20:10)
[2020-05-21] MEDS: amLODIPine 2.5 MG Tab PO SCH (08:31)
[2020-05-21] MEDS: Potassium Chloride 20 MEQ Tab.ER PO SCH (08:31)
[2020-05-21] MEDS: Isosorbide Mononitrate 30 MG Tab.ER PO SCH (08:31)
[2020-05-21] MEDS: Hydrochlorothiazide 25 MG Tab PO SCH (08:31)
[2020-05-21] MEDS: Multivitamin Tab PO SCH (08:32)
[2020-05-21] MEDS: Warfarin 2.5 MG Tab PO SCH (17:11)
[2020-05-21] MEDS: Pravastatin 20 MG Tab PO SCH (20:11)
[2020-05-22] MEDS: cloNIDine 0.1 MG Tab PO SCH ×2 (08:17→21:31)
[2020-05-22] MEDS: Potassium Chloride 20 MEQ Tab.ER PO SCH (08:18)
[2020-05-22] MEDS: Isosorbide Mononitrate 30 MG Tab.ER PO SCH (08:18)
[2020-05-22] MEDS: Hydrochlorothiazide 25 MG Tab PO SCH (08:18)
[2020-05-22] MEDS: amLODIPine 2.5 MG Tab PO SCH (08:18)
[2020-05-22] MEDS: Multivitamin Tab PO SCH (08:19)
[2020-05-22] MEDS: Warfarin 2.5 MG Tab PO SCH (17:12)
[2020-05-22] MEDS: Pravastatin 20 MG Tab PO SCH (21:31)
[2020-05-23] MEDS: amLODIPine 2.5 MG Tab PO SCH (10:41)
[2020-05-23] MEDS: Isosorbide Mononitrate 30 MG Tab.ER PO SCH (10:42)
[2020-05-23] MEDS: Potassium Chloride 20 MEQ Tab.ER PO SCH (10:42)
[2020-05-23] MEDS: Multivitamin Tab PO SCH (10:42)
[2020-05-23] MEDS: cloNIDine 0.1 MG Tab PO SCH ×2 (10:43→20:03)
[2020-05-23] MEDS: Hydrochlorothiazide 25 MG Tab PO SCH (10:43)
[2020-05-23] MEDS: Warfarin 2.5 MG Tab PO SCH (20:02)
[2020-05-23] MEDS: Pravastatin 20 MG Tab PO SCH (20:03)
[2020-05-24] MEDS: cloNIDine 0.1 MG Tab PO SCH ×2 (09:19→20:00)
[2020-05-24] MEDS: Hydrochlorothiazide 25 MG Tab PO SCH (09:19)
[2020-05-24] MEDS: Multivitamin Tab PO SCH (09:19)
[2020-05-24] MEDS: Potassium Chloride 20 MEQ Tab.ER PO SCH (09:20)
[2020-05-24] MEDS: amLODIPine 2.5 MG Tab PO SCH (09:20)
[2020-05-24] MEDS: Isosorbide Mononitrate 30 MG Tab.ER PO SCH (09:20)
[2020-05-24] MEDS: Warfarin 2.5 MG Tab PO SCH (16:10)
[2020-05-24] MEDS: Ibuprofen 200 MG Tab PO PRN (16:11)
[2020-05-24] MEDS: Acetaminophen 500 MG Tab PO PRN (16:11)
[2020-05-24] MEDS: Pravastatin 20 MG Tab PO SCH (20:01)
[2020-05-25] MEDS: Hydrochlorothiazide 25 MG Tab PO SCH (08:01)
[2020-05-25] MEDS: cloNIDine 0.1 MG Tab PO SCH ×2 (08:01→20:34)
[2020-05-25] MEDS: Isosorbide Mononitrate 30 MG Tab.ER PO SCH (08:02)
[2020-05-25] MEDS: amLODIPine 2.5 MG Tab PO SCH (08:02)
[2020-05-25] MEDS: Potassium Chloride 20 MEQ Tab.ER PO SCH (08:02)
[2020-05-25] MEDS: Ibuprofen 200 MG Tab PO PRN (08:03)
[2020-05-25] MEDS: Acetaminophen 500 MG Tab PO PRN (08:03)
[2020-05-25] MEDS: Multivitamin Tab PO SCH (08:03)
[2020-05-25] MEDS ORDERED: Acetaminophen 500 MG Tab PO SCH (12:00)
[2020-05-25] MEDS: Ibuprofen 200 MG Tab PO SCH ×2 (13:49→20:35)
[2020-05-25] MEDS: Acetaminophen 500 MG Tab PO SCH ×2 (13:50→20:35)
--- NOTE | 2020-05-25 15:51 | PCM.PN ---
- General Info Date of Service: 05/25/20 Subjective Update: Marcus is making slow progress with PT/OT but better than when he came in. They have recommended Assisted Living but financially not able to do that. His son plans to move in with him and his mother to help with his cares once he is ready for discharge. He denies any complaints today. Eating and drinking well. Had some pain over the weekend in his joints, started on Tylenol & Ibuprofen and states no joint pain today. Functional Status: Reports: Pain Controlled, Tolerating Diet, Ambulating, Urinating - Patient Data Vitals - Most Recent: Last Vital Signs Temp 98.2 F 05/25/20 08:00 Pulse 69 05/25/20 08:00 Resp 18 05/25/20 08:00 BP 170/69 H 05/25/20 08:02 Pulse Ox 99 05/25/20 08:00 Weight - Most Recent: 206 lb 9.6 oz Med Orders - Current: Current Medications Acetaminophen (Tylenol Extra Strength) 500 mg PO Q6H [facility] Last Admin: 05/25/20 13:50 Dose: 500 mg Documented by: Amlodipine Besylate (Norvasc) 2.5 mg PO DAILY [facility] Last Admin: 05/25/20 08:02 Dose: 2.5 mg Documented by: Clonidine HCl (Catapres) 0.2 mg PO BID [facility] Last Admin: 05/25/20 08:01 Dose: 0.2 mg Documented by: Hydrochlorothiazide (Hydrochlorothiazide) 50 mg PO DAILY [facility] Last Admin: 05/25/20 08:01 Dose: 50 mg Documented by: Ibuprofen (Motrin) 200 mg PO Q6H [facility] Last Admin: 05/25/20 13:49 Dose: 200 mg Documented by: Isosorbide Mononitrate (Imdur) 30 mg PO DAILY [facility] Last Admin: 05/25/20 08:02 Dose: 30 mg Documented by: Lisinopril (Prinivil) 40 mg PO DAILY [facility] Last Admin: 05/25/20 08:02 Dose: 40 mg Documented by: Multivitamins/Minerals/Vitamin C (Tab-A-Tabitha) 1 tab PO DAILY [facility] Last Admin: 05/25/20 08:03 Dose: 1 tab Documented by: Nitroglycerin (Nitrostat) 0.4 mg SL Q5M PRN PRN Reason: Chest Pain Potassium Chloride (Klor-Con M20) 20 meq PO DAILY [facility] Last Admin: 05/25/20 08:02 Dose: 20 meq Documented by: Pravastatin Sodium (Pravachol) 80 mg PO BEDTIME [facility] Last Admin: 05/24/20 20:01 Dose: 80 mg Documented by: Warfarin Sodium (Coumadin Sliding Scale) 1 each PO ASDIRECTED [facility] Warfarin Sodium (Coumadin) 2.5 mg PO TuTh@1600 [facility] Last Admin: 05/21/20 17:11 Dose: 2.5 mg Documented by: Warfarin Sodium (Coumadin) 1.25 mg PO SuMoWeFrSa@1600 [facility] Last Admin: 05/24/20 16:10 Dose: 1.25 mg Documented by: Discontinued Medications Acetaminophen (Tylenol Extra Strength) 500 mg PO Q6H PRN PRN Reason: Pain Last Admin: 05/25/20 08:03 Dose: 500 mg Documented by: Acetaminophen (Tylenol Extra Strength) 500 mg PO Q6H [facility] Last Admin: 05/25/20 13:03 Dose: Not Given Documented by: Ibuprofen (Motrin) 200 mg PO Q6H PRN PRN Reason: Pain Last Admin: 05/25/20 08:03 Dose: 200 mg Documented by: Warfarin Sodium (Coumadin) 2.5 mg PO 1600 ONE Stop: 05/15/20 16:01 Last Admin: 05/15/20 16:36 Dose: 2.5 mg Documented by: Warfarin Sodium (Coumadin) 1.25 mg PO 1600 [facility] Stop: 05/16/20 16:01 Last Admin: 05/16/20 16:13 Dose: 1.25 mg Documented by: Warfarin Sodium (Coumadin) 1.25 mg PO 1600 [facility] Stop: 05/17/20 16:01 Last Admin: 05/17/20 16:08 Dose: 1.25 mg Documented by: - Exam General: Alert, Cooperative, No Acute Distress Lungs: Clear to Auscultation, Normal Respiratory Effort Cardiovascular: Regular Rate, Irregular Rhythm GI/Abdominal Exam: Normal Bowel Sounds, Soft, Non-Tender, No Distention Extremities: No Pedal Edema Peripheral Pulses: 2+: Radial (L), Radial (R) Sepsis Event Note - Evaluation Sepsis Screening Result: No Definite Risk - Focused Exam Vital Signs: Vital Signs Temp Pulse Resp BP BP Pulse Ox 05/25/20 08:02 170/69 H 05/25/20 08:01 170/69 H 05/25/20 08:00 98.2 F 69 18 170/69 H 99 Date Exam was Performed: 05/25/20 Time Exam was Performed: 15:54 - Problem List & Annotations (1) Weakness SNOMED Code(s): 52899889 Code(s): R53.1 - WEAKNESS Status: Acute Current Visit: No (2) Hypertension SNOMED Code(s): 39743132 Code(s): I10 - ESSENTIAL (PRIMARY) HYPERTENSION Status: Chronic Current Visit: No (3) Edema SNOMED Code(s): 618267359, 315418814 Code(s): R60.9 - EDEMA, UNSPECIFIED Status: Resolved Current Visit: No - Problem List Review Problem List Initiated/Reviewed/Updated: Yes - My Orders Last 24 Hours: My Active Orders 05/25/20 14:00 Acetaminophen [Tylenol Extra Strength] 500 mg PO Q6H Ibuprofen [Motrin] 200 mg PO Q6H 05/25/20 16:00 Communication Order [RC] Q2HR - Plan Plan:: 1. Continue current care. 2. PT/OT continue therapies. 3. Scheduled toileting q2h as patient does not use call light and will just use incontinent brief. 4. Care conference via Zoom with family today, son is planning on moving into their apartment to help with his cares. They are getting safety bars, elevated toilet seat for the home, would be ready for him next Jun 03. Will keep them posted on his progress.
[2020-05-25] MEDS: Warfarin 2.5 MG Tab PO SCH (16:16)
[2020-05-25] MEDS: Pravastatin 20 MG Tab PO SCH (20:36)
[2020-05-26] MEDS: Ibuprofen 200 MG Tab PO SCH ×4 (02:12→20:14)
[2020-05-26] MEDS: Acetaminophen 500 MG Tab PO SCH ×4 (02:13→20:14)
[2020-05-26] MEDS: Isosorbide Mononitrate 30 MG Tab.ER PO SCH (08:51)
[2020-05-26] MEDS: cloNIDine 0.1 MG Tab PO SCH ×2 (08:51→20:14)
[2020-05-26] MEDS: amLODIPine 2.5 MG Tab PO SCH (08:51)
[2020-05-26] MEDS: Potassium Chloride 20 MEQ Tab.ER PO SCH (08:52)
[2020-05-26] MEDS: Multivitamin Tab PO SCH (08:53)
[2020-05-26] MEDS: Hydrochlorothiazide 25 MG Tab PO SCH (08:53)
[2020-05-26] MEDS: Warfarin 2.5 MG Tab PO SCH (16:19)
[2020-05-26] MEDS: Pravastatin 20 MG Tab PO SCH (20:14)
[2020-05-27] MEDS: Acetaminophen 500 MG Tab PO SCH ×4 (02:01→20:34)
[2020-05-27] MEDS: Ibuprofen 200 MG Tab PO SCH ×4 (02:01→20:34)
[2020-05-27] MEDS: Isosorbide Mononitrate 30 MG Tab.ER PO SCH (09:20)
[2020-05-27] MEDS: Multivitamin Tab PO SCH (09:20)
[2020-05-27] MEDS: Hydrochlorothiazide 25 MG Tab PO SCH (09:21)
[2020-05-27] MEDS: Potassium Chloride 20 MEQ Tab.ER PO SCH (09:22)
[2020-05-27] MEDS: cloNIDine 0.1 MG Tab PO SCH ×2 (09:22→20:34)
[2020-05-27] MEDS: amLODIPine 2.5 MG Tab PO SCH (09:22)
[2020-05-27] MEDS: Warfarin 2.5 MG Tab PO SCH (18:15)
[2020-05-27] MEDS: Pravastatin 20 MG Tab PO SCH (20:34)
[2020-05-28] MEDS: Ibuprofen 200 MG Tab PO SCH ×4 (01:48→20:41)
[2020-05-28] MEDS: Acetaminophen 500 MG Tab PO SCH ×4 (01:48→20:42)
[2020-05-28] MEDS: cloNIDine 0.1 MG Tab PO SCH ×2 (08:30→20:42)
[2020-05-28] MEDS: Hydrochlorothiazide 25 MG Tab PO SCH (08:31)
[2020-05-28] MEDS: amLODIPine 2.5 MG Tab PO SCH (08:31)
[2020-05-28] MEDS: Potassium Chloride 20 MEQ Tab.ER PO SCH (08:31)
[2020-05-28] MEDS: Isosorbide Mononitrate 30 MG Tab.ER PO SCH (08:31)
[2020-05-28] MEDS: Multivitamin Tab PO SCH (08:32)
[2020-05-28] MEDS: Warfarin 2.5 MG Tab PO SCH (16:57)
[2020-05-28] MEDS: Pravastatin 20 MG Tab PO SCH (20:43)
[2020-05-29] MEDS: Acetaminophen 500 MG Tab PO SCH ×4 (01:54→19:56)
[2020-05-29] MEDS: Ibuprofen 200 MG Tab PO SCH ×4 (01:54→19:55)
[2020-05-29] MEDS: Hydrochlorothiazide 25 MG Tab PO SCH (08:43)
[2020-05-29] MEDS: Isosorbide Mononitrate 30 MG Tab.ER PO SCH (08:43)
[2020-05-29] MEDS: amLODIPine 2.5 MG Tab PO SCH (08:44)
[2020-05-29] MEDS: Multivitamin Tab PO SCH (08:44)
[2020-05-29] MEDS: Potassium Chloride 20 MEQ Tab.ER PO SCH (08:44)
[2020-05-29] MEDS: cloNIDine 0.1 MG Tab PO SCH ×2 (08:44→20:00)
[2020-05-29] MEDS: Warfarin 2.5 MG Tab PO SCH (15:43)
[2020-05-29] MEDS: Pravastatin 20 MG Tab PO SCH (20:01)
[2020-05-30] MEDS: Acetaminophen 500 MG Tab PO SCH ×2 (02:09→08:48)
[2020-05-30] MEDS: Ibuprofen 200 MG Tab PO SCH ×2 (02:09→08:48)
[2020-05-30] MEDS: Hydrochlorothiazide 25 MG Tab PO SCH (08:49)
[2020-05-30] MEDS: cloNIDine 0.1 MG Tab PO SCH (08:49)
[2020-05-30] MEDS: amLODIPine 2.5 MG Tab PO SCH (08:49)
[2020-05-30 08:50] VITALS: BP 186/86
[2020-05-30] MEDS: Isosorbide Mononitrate 30 MG Tab.ER PO SCH (08:50)
[2020-05-30] MEDS: Potassium Chloride 20 MEQ Tab.ER PO SCH (08:50)
[2020-05-30] MEDS: Multivitamin Tab PO SCH (08:50)
[2020-05-30 08:56] VITALS: PULSE 73
--- NOTE | 2020-05-30 10:54 | PCM.DCSUM1 ---
Discharge Summary - Hospital Course HPI Initial Comments: This is a 84-year-old male patient that was switched swing bed after her acute stay for right leg pain and tremendous weakness. He has some hypokalemia that was corrected with potassium. He did have a ultrasound of his leg but did not show any DVT. He has history of CHF and A. fib. Had a CT of his head that showed old lacunar infarct and some structural vascular disease but no acute events. Patient was profoundly weak where he cannot walk without to assist. PT/OT saw him and felt he would be a good candidate for swing bed. Diagnosis: Stroke: No - Discharge Data Discharge Date: 05/30/20 ([facility]) Discharge Disposition: Home, W Home Health Agency 06 Condition: Good - Referral to Home Health Date of Face to Face Encounter: 05/30/20 Reason for Homebound Status: Weakness Primary Care Physician: Dr Girard Skilled Need: PT/OT. Nursing - Discharge Diagnosis/Problem(s) (1) Weakness SNOMED Code(s): 92307419 ICD Code: R53.1 - WEAKNESS Status: Acute Current Visit: No Problem Details: Improved. (2) Hypertension SNOMED Code(s): 48385570 ICD Code: I10 - ESSENTIAL (PRIMARY) HYPERTENSION Status: Chronic Current Visit: No (3) Edema SNOMED Code(s): 462745247, 497311535 ICD Code: R60.9 - EDEMA, UNSPECIFIED Status: Resolved Current Visit: No (4) Atrial fibrillation SNOMED Code(s): 58870520 ICD Code: I48.91 - UNSPECIFIED ATRIAL FIBRILLATION Status: Chronic Current Visit: Yes (5) CHF (congestive heart failure) SNOMED Code(s): 67342043 ICD Code: I50.9 - HEART FAILURE, UNSPECIFIED Status: Acute Current Visit: Yes - Patient Summary/Data Consults: Consultations 05/15/20 09:05 OT Evaluation and Treatment [CONS] Routine Please Evaluate and Treat. OT Reason for Consult: ADL's This query below is only for informational purposes and is not editable. PT Evaluation and Treatment [CONS] Routine Please Evaluate and Treat. PT Reason for Consult: Ambulation This query below is only for informational purposes and is not editable. Hospital Course: Swing bed priyank, Marcus was making slow progress with PT/OT initially. Didn't complain about knee pain but to nursing he did, was examined initially, no abnormalities noted on 05/18. He complained to nursing again on 05/25, started scheduled Tylenol 500 mg & Ibuprofen 200 mg every 6 hours and pain improved, PT/OT progressed more quickly this week. Initially at care conference this week plan was to discharge next but he had improved enough that PT/OT discharged him on 05/29 so his son Chris will be picking him up today at 1300. Chris will be staying with his parents during the day and helping get him to bed then the son will go to his own home, will be going with [facility] with continued therapies. PT/OT at care conference had recommended Assisted Living placement but family stated that wasn't an option financially. Follow up with Dr Girard in 1 week, he may elect to change Tylenol & Ibuprofen scheduled to prn at that time. - Patient Instructions Diet: Regular Diet as Tolerated, Drink 8-10+ Glasses/Day Activity: As Tolerated Driving: Do Not Drive Showering/Bathing: May Shower Notify Provider of: Fever, Increased Pain, Swelling and Redness Other/Special Instructions: Follow up with Dr Girard in 1 week. Repeat INR on 06/05, INR check 05/30 2.40. - Discharge Plan *PRESCRIPTION DRUG MONITORING PROGRAM REVIEWED*: Not Applicable *COPY OF PRESCRIPTION DRUG MONITORING REPORT IN PATIENT [place]: Not Applicable Home Medications: Home Meds Lisinopril 40 mg PO DAILY 12/21/16 [History] Potassium Chloride 20 meq PO DAILY 12/21/16 [History] Pravastatin Sodium 80 mg PO BEDTIME 12/21/16 [History] Warfarin [Coumadin] 1.25 mg PO SUMOWEFRSA 12/21/16 [History] Warfarin [Coumadin] 2.5 mg PO TUTH 12/21/16 [History] cloNIDine HCL [Catapres] 0.2 mg PO BID 12/21/16 [History] hydroCHLOROthiazide [Hydrochlorothiazide] 50 mg PO DAILY 12/21/16 [History] amLODIPine [Norvasc] 2.5 mg PO DAILY 12/22/16 [History] Isosorbide Mononitrate [Imdur] 30 mg PO DAILY 07/06/18 [History] Multivitamin with Minerals [Multiple Vitamin] 1 ea PO DAILY 07/06/18 [History] Nitroglycerin [Nitrostat] 0.4 mg SL Q5M PRN 05/12/20 [History] Acetaminophen [Tylenol Extra Strength] 500 mg PO Q6H tablet 05/30/20 [Rx] Ibuprofen [Motrin] 200 mg PO Q6H tablet 05/30/20 [Rx] Referrals: William Girard MD [Physician] - - Discharge Summary/Plan Comment DC Time >30 min.: No - General Info Date of Service: 05/30/20 Subjective Update: No complaints this morning, no chest pain, shortness of breath, no edema. Sitting up in the chair. - Patient Data Vitals - Most Recent: Last Vital Signs Temp 98.1 F 05/30/20 08:00 Pulse 73 05/30/20 08:00 Resp 16 05/30/20 08:00 BP 186/86 H 05/30/20 08:50 Pulse Ox 99 05/30/20 08:56 Weight - Most Recent: 201 lb 6 oz Lab Results - Last 24 hrs: Laboratory Results - last 24 hr 05/30/20 Range/Units 06:30 PT 24.5 H (9.0-11.1) sec INR 2.40 H (1.00-1.24) Med Orders - Current: Current Medications Acetaminophen (Tylenol Extra Strength) 500 mg PO Q6H [facility] Last Admin: 05/30/20 08:48 Dose: 500 mg Documented by: Amlodipine Besylate (Norvasc) 2.5 mg PO DAILY [facility] Last Admin: 05/30/20 08:49 Dose: 2.5 mg Documented by: Clonidine HCl (Catapres) 0.2 mg PO BID [facility] Last Admin: 05/30/20 08:49 Dose: 0.2 mg Documented by: Hydrochlorothiazide (Hydrochlorothiazide) 50 mg PO DAILY [facility] Last Admin: 05/30/20 08:49 Dose: 50 mg Documented by: Ibuprofen (Motrin) 200 mg PO Q6H [facility] Last Admin: 05/30/20 08:48 Dose: 200 mg Documented by: Isosorbide Mononitrate (Imdur) 30 mg PO DAILY [facility] Last Admin: 05/30/20 08:50 Dose: 30 mg Documented by: Lisinopril (Prinivil) 40 mg PO DAILY [facility] Last Admin: 05/30/20 08:49 Dose: 40 mg Documented by: Multivitamins/Minerals/Vitamin C (Tab-A-Tabitha) 1 tab PO DAILY [facility] Last Admin: 05/30/20 08:50 Dose: 1 tab Documented by: Nitroglycerin (Nitrostat) 0.4 mg SL Q5M PRN PRN Reason: Chest Pain Potassium Chloride (Klor-Con M20) 20 meq PO DAILY [facility] Last Admin: 05/30/20 08:50 Dose: 20 meq Documented by: Pravastatin Sodium (Pravachol) 80 mg PO BEDTIME [facility] Last Admin: 05/29/20 20:01 Dose: 80 mg Documented by: Warfarin Sodium (Coumadin Sliding Scale) 1 each PO ASDIRECTED [facility] Warfarin Sodium (Coumadin) 2.5 mg PO TuTh@1600 [facility] Last Admin: 05/28/20 16:57 Dose: 2.5 mg Documented by: Warfarin Sodium (Coumadin) 1.25 mg PO SuMoWeFrSa@1600 [facility] Last Admin: 05/29/20 15:43 Dose: 1.25 mg Documented by: Discontinued Medications Acetaminophen (Tylenol Extra Strength) 500 mg PO Q6H PRN PRN Reason: Pain Last Admin: 05/25/20 08:03 Dose: 500 mg Documented by: Acetaminophen (Tylenol Extra Strength) 500 mg PO Q6H [facility] Last Admin: 05/25/20 13:03 Dose: Not Given Documented by: Ibuprofen (Motrin) 200 mg PO Q6H PRN PRN Reason: Pain Last Admin: 05/25/20 08:03 Dose: 200 mg Documented by: Warfarin Sodium (Coumadin) 2.5 mg PO 1600 ONE Stop: 05/15/20 16:01 Last Admin: 05/15/20 16:36 Dose: 2.5 mg Documented by: Warfarin Sodium (Coumadin) 1.25 mg PO 1600 [facility] Stop: 05/16/20 16:01 Last Admin: 05/16/20 16:13 Dose: 1.25 mg Documented by: Warfarin Sodium (Coumadin) 1.25 mg PO 1600 [facility] Stop: 05/17/20 16:01 Last Admin: 05/17/20 16:08 Dose: 1.25 mg Documented by: - Exam General: Reports: Alert, Oriented (person, pleasantly confused, didn't know his PCP name.), Cooperative, No Acute Distress Lungs: Reports: Clear to Auscultation, Normal Respiratory Effort Cardiovascular: Reports: Regular Rate, Irregular Rhythm GI/Abdominal Exam: Normal Bowel Sounds, Soft, Non-Tender, No Distention Extremities: Pedal Edema (trace BLE) Skin: Reports: Warm, Dry, Intact
== END 2020-05-30 13:10 | disposition home health service (06) | DRG 948 ==
LOC: FB.MS 08:00
PROVIDERS: ADMIT Family Medicine; ATTEND Family Medicine
DX: R53.1 Weakness (principal); I48.20 Chronic atrial fibrillation, unspecified; I11.0 Hypertensive heart disease with heart failure; I50.9 Heart failure, unspecified; E66.9 Obesity, unspecified; M25.461 Effusion, right knee; E78.00 Pure hypercholesterolemia, unspecified; Z88.0 Allergy status to penicillin; Z79.01 Long term (current) use of anticoagulants; Z79.899 Other long term (current) drug therapy; I25.2 Old myocardial infarction; Z95.5 Presence of coronary angioplasty implant and graft; Z86.73 Personal history of transient ischemic attack (TIA), and cerebral infarction without residual deficits
CPT/HCPCS: 36415; 81001; 85610; 97110-GO; 97110-GP; 97116-GP; 97530-GO; 97530-GP; 97535-GO; 97542-GO; A9270-GY; C8929

== ENCOUNTER 2021-11-18 15:35 | Inpatient (IN) | payer MEDICARE, BC ==
[2021-11-18] MEDS ORDERED: Sodium Chloride 0.9% 1,000 ML IV SCH ×2 (18:30→21:45)
[2021-11-18] MEDS ORDERED: Atropine 0.1 MG/ML 10 ML Syringe IVPUSH STA (19:26)
[2021-11-18] MEDS ORDERED: Ondansetron 4 MG/2 ML SDV IV PRN (21:31)
[2021-11-19] MEDS ORDERED: Acetaminophen 325 MG Tab PO PRN (02:00)
[2021-11-19] MEDS ORDERED: Nitroglycerin 0.4 MG Tab.SL SL PRN (08:43)
[2021-11-19] MEDS ORDERED: Acetaminophen 500 MG Tab PO PRN (08:45)
[2021-11-19] MEDS ORDERED: CLONIDINE HCL 0.2 MG PO SCH (09:00)
[2021-11-19] MEDS ORDERED: Non-Formulary Medication 1 Each (Potassium Chloride [Potassium Chloride] 20 MEQ Tablet.Er) PO SCH (09:00)
[2021-11-19] MEDS ORDERED: Warfarin Sliding Scale PO SCH (09:15)
[2021-11-19] MEDS ORDERED: Colchicine 0.6 MG Tab PO ONE ×2 (10:00→11:00)
[2021-11-19] MEDS: Isosorbide Mononitrate 30 MG Tab.ER PO SCH (10:02)
[2021-11-19] MEDS: amLODIPine 2.5 MG Tab PO SCH (10:03)
[2021-11-19] MEDS: Ibuprofen 400 MG Tab PO SCH ×3 (10:03→20:11)
[2021-11-19] MEDS: Spironolactone 25 MG Tab PO SCH (10:04)
[2021-11-19] MEDS: predniSONE 20 MG Tab PO SCH (10:05)
[2021-11-19] MEDS: Warfarin 2.5 MG Tab PO SCH (16:12)
[2021-11-19] MEDS: Pantoprazole 40 MG Tab.CR PO SCH (18:15)
[2021-11-19] MEDS: Melatonin 3 MG Tab PO SCH (20:11)
[2021-11-19] MEDS: Pravastatin 20 MG Tab PO SCH (20:13)
[2021-11-20] MEDS: Ibuprofen 400 MG Tab PO SCH ×4 (03:20→20:44)
[2021-11-20] MEDS: Pantoprazole 40 MG Tab.CR PO SCH (05:33)
[2021-11-20] MEDS: Spironolactone 25 MG Tab PO SCH (08:17)
[2021-11-20] MEDS: Colchicine 0.6 MG Tab PO SCH (08:17)
[2021-11-20] MEDS: Isosorbide Mononitrate 30 MG Tab.ER PO SCH (08:17)
[2021-11-20] MEDS: predniSONE 20 MG Tab PO SCH (08:18)
[2021-11-20] MEDS: amLODIPine 2.5 MG Tab PO SCH (08:18)
[2021-11-20] MEDS: Warfarin 2.5 MG Tab PO SCH (15:03)
[2021-11-20] MEDS: Loperamide 2 MG Cap PO PRN (17:44)
[2021-11-20] MEDS: Melatonin 3 MG Tab PO SCH (20:43)
[2021-11-20] MEDS: Pravastatin 20 MG Tab PO SCH (20:45)
[2021-11-21] MEDS: Ibuprofen 400 MG Tab PO SCH ×2 (03:10→08:04)
[2021-11-21] MEDS: Pantoprazole 40 MG Tab.CR PO SCH (05:17)
[2021-11-21] MEDS: Spironolactone 25 MG Tab PO SCH (08:03)
[2021-11-21] MEDS: predniSONE 20 MG Tab PO SCH (08:03)
[2021-11-21] MEDS: Colchicine 0.6 MG Tab PO SCH (08:04)
[2021-11-21] MEDS: Isosorbide Mononitrate 30 MG Tab.ER PO SCH (08:04)
[2021-11-21] MEDS: amLODIPine 2.5 MG Tab PO SCH (08:05)
[2021-11-21] MEDS: Loperamide 2 MG Cap PO PRN (10:40)
[2021-11-21 12:54] VITALS: BP 177/74; PULSE 70
[2021-11-23] MEDS ORDERED: Warfarin 2.5 MG Tab PO SCH (08:43)
== END 2021-11-21 11:10 | disposition home health service (06) | DRG 948 ==
LOC: FB.ED 15:35 → FB.MS 21:31 → INTOOBSV 11-19 08:37 → OBSVTOIN 11-19 08:37 → UNDOADMIN 11-19 21:31 → FB.MS 11-20 10:30
PROVIDERS: ADMIT Emergency Medicine; ATTEND Family Medicine
DX: R53.1 Weakness (principal); N17.9 Acute kidney failure, unspecified; I48.20 Chronic atrial fibrillation, unspecified; M10.9 Gout, unspecified; H54.7 Unspecified visual loss; E78.00 Pure hypercholesterolemia, unspecified; K21.9 Gastro-esophageal reflux disease without esophagitis; Z20.822 Contact with and (suspected) exposure to COVID-19; E66.9 Obesity, unspecified; I50.9 Heart failure, unspecified; I11.0 Hypertensive heart disease with heart failure; H35.30 Unspecified macular degeneration; E86.0 Dehydration; Z79.01 Long term (current) use of anticoagulants; D72.89 Other specified disorders of white blood cells; Z88.0 Allergy status to penicillin; Z79.899 Other long term (current) drug therapy; I25.2 Old myocardial infarction; Z95.5 Presence of coronary angioplasty implant and graft; Z86.73 Personal history of transient ischemic attack (TIA), and cerebral infarction without residual deficits; Z68.29 Body mass index [BMI] 29.0-29.9, adult
CPT/HCPCS: 36415 ×2; 71045; 80048; 80053; 81001; 83880; 84484; 84550; 85025 ×2; 85610 ×2; 93005; 99285; A9270 ×9; J7030 ×2; J7512; U0002; 97166-GO; G0378